=== PATIENT | male | born 1955 | race Caucasian/White ===

== ENCOUNTER → 2019-10-27 | Outpatient (CLI) | payer MEDICARE ==
--- NOTE | 2019-10-27 15:41 | XR ---
EXAMINATION TYPE: XR chest 2V DATE OF EXAM: 10/27/2019 COMPARISON: CT chest 04/13/2012 HISTORY: Palpitations, cough and chest pain TECHNIQUE: Frontal and lateral views of the chest are obtained. FINDINGS: There is no focal air space opacity, pleural effusion, or pneumothorax seen. The cardiac silhouette size is within normal limits. The osseous structures are remarkable for some thickening of the posterior right eighth rib, question prior rib fracture with healing, correlate for appropriat e history. There are prominent lung volumes with flattening the hemidiaphragms. Aorta is dense. Possi ble minimal scarring or subsegmental basilar atelectatic changes. IMPRESSION: No acute cardiopulmonary process. Correlate for possible prior rib fracture. There is so me underlying emphysema. Possible basilar scarring.
== END | disposition home or self-care (01) ==
LOC: RADXRMAIN 11:25
PROVIDERS: ATTEND Nurse Practitioner Family
DX: J43.9 Emphysema, unspecified (principal)
CPT/HCPCS: 71046

== ENCOUNTER → 2019-11-04 | Outpatient (CLI) | payer MEDICARE | END | disposition home or self-care (01) | LOC: LABWHC1 09:38 | PROVIDERS: ATTEND Urology | DX: N52.9 Male erectile dysfunction, unspecified (principal) | CPT/HCPCS: 36415; 84403 ==

== ENCOUNTER 2020-04-08 13:28 | Emergency (ER) | payer MEDICARE ==
[2020-04-08] MEDS ORDERED: ACETAMINOPHEN TAB 325 MG TAB PO STA (14:12)
[2020-04-08 15:08] LABS: Basophils % (A) 0 %; Eosinophils # (A) 0.1 k/uL (0-0.7); Eosinophils % (A) 1 %; HCT 39.1 % (39.0-53.0); HGB 13.1 gm/dL (13.0-17.5); Lymphocytes # (A) 0.2 k/uL (1.0-4.8); Lymphocytes % (A) 2 %; MCH 32.9 pg (25.0-35.0); MCHC 33.6 g/dL (31.0-37.0); MCV 97.9 fL (80.0-100.0); Mean Platelet Volume 8.3; Monocytes # (A) 0.4 k/uL (0-1.0); Monocytes % (A) 4 %; Neutrophils # (A) 9.2 k/uL (1.3-7.7); Neutrophils % (A) 92 %; Platelet Count 151 k/uL (150-450); RBC 3.99 m/uL (4.30-5.90); RDW 14.3 % (11.5-15.5)
[2020-04-08 15:10] LABS: Appearance,Urine Cloudy (Clear); Bacteria,Urine Rare /hpf; Bilirubin,Urine Negative (Negative); Blood,Urine Small (Negative); Color,Urine Light Yellow; Glucose,Urine (UA) 2+ (Negative); Ketones,Urine Negative (Negative); Leukocyte Esterase,Urine Small (Negative); Nitrite,Urine Negative (Negative); PH, Urine 8.5 (5.0-8.0); Protein,Urine 2+ (Negative); RBC,Urine 4 /hpf (0-5); Specific Gravity,Urine 1.007 (1.001-1.035); Squamous Epithelial Cell,Urine <1 /hpf (0-4); Urobilinogen,Urine <2.0 mg/dL (<2.0); WBC,Urine 7 /hpf (0-5)
[2020-04-08 15:25] LABS: Albumin 3.5 g/dL (3.5-5.0); Calcium 8.7 mg/dL (8.4-10.2); Potassium 4.6 mmol/L (3.5-5.1); Total Bilirubin 0.7 mg/dL (0.2-1.3); Total Protein 6.3 g/dL (6.3-8.2)
[2020-04-08] MEDS ORDERED: cefTRIAXone IN SWFI 1,000 MG/10 ML SYRINGE IVP STA (15:30)
--- NOTE | 2020-04-08 15:30 | CT ---
EXAMINATION TYPE: CT brain wo con DATE OF EXAM: 04/08/2020 COMPARISON: None HISTORY: Fever x2 days CT DLP: 1115.4 mGycm Automated exposure control for dose reduction was used. Ventricles and sulci appear normal. There is no mass effect nor midline shift. There is no sign of in tracranial hemorrhage. Calvarium is intact. There is mild mucosal thickening in the sphenoid sinus. M ucous retention cysts in the maxillary sinuses. There is some debris in the external auditory canals. IMPRESSION: Brain CT scan normal for age. Mild sinusitis.
--- NOTE | 2020-04-08 15:30 | ED ---
General Adult HPI - General Chief complaint: Fever Stated complaint: Fever Time Seen by Provider: 04/08/20 13:30 Source: patient Mode of arrival: ambulatory Limitations: no limitations - History of Present Illness Initial comments: Patient is a 64-year-old male with past history of end-stage renal disease on hemodialysis who presents emergency room with reported fevers. Patient states that he had a low-grade temperature yesterday at dialysis. He has not missed any sessions. He awoke this morning covered in sweat. He took his temp and it was 102. He went to urgent care. He is denying headaches or visual changes. No cough or hemoptysis. No chest pain. Denies abdominal pain. Patient makes little urine and has not noted any changes. No diarrhea or bloody stools. No rashes. AV fistula site is without bleeding, drainage or redness. I received a call from urgent care stating that they recommended transfer patient to the hospital - Related Data Home Medications Medication Instructions Recorded Confirmed Calcium Acetate [PhosLo] 2,668 mg PO AC-TID 04/09/20 04/09/20 Levothyroxine Sodium [Synthroid] 175 mcg PO DAILY 04/09/20 04/09/20 Lidocaine-Prilocaine Cream [Emla 1 applic TOPICAL DIRECTED 04/09/20 04/09/20 Cream 2.5%/2.5%] Midodrine [ProAmatine] 5 mg PO DAILY PRN 04/09/20 04/09/20 Pravastatin Sodium [Pravachol] 10 mg PO HS 04/09/20 04/09/20 Prorenal+D 1 tab PO DAILY 04/09/20 04/09/20 Previous Rx's Medication Instructions Recorded Apixaban [Eliquis] 2.5 mg PO BID #60 tab 04/11/20 Aspirin 81 mg PO DAILY chew 04/11/20 Ciprofloxacin HCl [Cipro] 500 mg PO Q24H #12 tab 04/11/20 Lisinopril [Zestril] 2.5 mg PO DAILY #30 tab 04/11/20 Metoprolol Tartrate [Lopressor] 25 mg PO DAILY #30 tab 04/11/20 Nicotine 21Mg/24Hr Patch [Habitrol] 1 patch TRANSDERM DAILY #30 patch 04/11/20 Spironolactone [Aldactone] 25 mg PO DAILY #30 tab 04/11/20 Allergies Allergy/AdvReac Type Severity Reaction Status Date / Time No Known Allergies Allergy Verified 04/09/20 09:58 Review of Systems ROS Statement: Those systems with pertinent positive or pertinent negative responses have been documented in the HPI. ROS Other: All systems not noted in ROS Statement are negative. Past Medical History Past Medical History: Renal Disease Additional Past Medical History / Comment(s): hemodialysis M,W,F, polycystic kidney disease History of Any Multi-Drug Resistant Organisms: None Reported Additional Past Surgical History / Comment(s): AV fistula, PD catheter and removal Past Psychological History: No Psychological Hx Reported Smoking Status: Current every day smoker Past Alcohol Use History: Occasional Past Drug Use History: None Reported General Exam Limitations: no limitations General appearance: alert, in no apparent distress Head exam: Present: atraumatic, normocephalic, normal inspection Eye exam: Present: normal appearance, PERRL, EOMI. Absent: scleral icterus, conjunctival injection, periorbital swelling ENT exam: Present: normal exam, mucous membranes moist Neck exam: Present: normal inspection. Absent: tenderness, meningismus, lymphadenopathy Respiratory exam: Present: normal lung sounds bilaterally. Absent: respiratory distress, wheezes, rales, rhonchi, stridor Cardiovascular Exam: Present: normal rhythm, tachycardia, normal heart sounds. Absent: systolic murmur, diastolic murmur, rubs, gallop, clicks GI/Abdominal exam: Present: soft, normal bowel sounds. Absent: distended, tenderness, guarding, rebound, rigid Extremities exam: Present: normal inspection, full ROM, normal capillary refill, other (fistula left upper extremity with thrill). Absent: tenderness, pedal edema, joint swelling, calf tenderness Back exam: Present: normal inspection Neurological exam: Present: alert, oriented X3, CN II-XII intact Psychiatric exam: Present: normal affect, normal mood Skin exam: Present: warm, dry, intact, normal color. Absent: rash Course Vital Signs 04/08/20 04/08/20 04/08/20 13:31 15:07 15:37 Temperature 101.6 F H Pulse Rate 114 H 98 Respiratory 18 16 18 Rate Blood Pressure 114/74 126/70 O2 Sat by Pulse 98 98 Oximetry 04/08/20 16:30 Temperature 99.0 F Pulse Rate Respiratory Rate Blood Pressure O2 Sat by Pulse Oximetry EKG Findings - EKG Comments: EKG Findings:: EKG demonstrates normal sinus rhythm with a ventricular rate of 98. IN 136. QRS 82. QTC 457. No acute ST segment elevations or depressions concern for ischemic changes. Biphasic T-wave V4 through V6 Medical Decision Making - Medical Decision Making Upon arrival the patient is placed in room 18. A thorough history and physical was performed. Laboratory studies were conducted. Patient was sent for chest x-ray as well as a CT of his brain. He was given a dose of Tylenol. Upon return of the results, they are discussed with the patient. Patient requests to go home. I discussed the severity of the patients condition with diagnosis with need for hospitalization, IV antibiotics and close observation. Patient understood but continued to request to go home. I discussed the risks of leaving to include rapid decline in patients condition, permanent disability and . Patient understood these risk, was of sound mind, is capable of making his own decisions and refuses admission. I notified him that he was leaving against [facility] advice and he agreed to sign AMA paperwork. I instructed him that he needs to return to the ED when he does agree to hospital admission and needs to follow up with his PCP as soon as possible. I did provide him a rx for an antibiotic however he is made aware that he requires IV antibiotics at this time and these oral antibiotics are unlikely to treat his condition at this critical time. - Lab Data Result diagrams: 04/08/20 14:46 04/08/20 14:46 Lab Results 04/08/20 04/08/20 04/08/20 Range/Units 14:45 14:46 14:46 WBC 10.0 (3.8-10.6) k/uL RBC 3.99 L (4.30-5.90) m/uL Hgb 13.1 (13.0-17.5) gm/dL Hct 39.1 (39.0-53.0) % MCV 97.9 (80.0-100.0) fL MCH 32.9 (25.0-35.0) pg MCHC 33.6 (31.0-37.0) g/dL RDW 14.3 (11.5-15.5) % Plt Count 151 (150-450) k/uL Neutrophils % 92 % Lymphocytes % 2 % Monocytes % 4 % Eosinophils % 1 % Basophils % 0 % Neutrophils # 9.2 H (1.3-7.7) k/uL Lymphocytes # 0.2 L (1.0-4.8) k/uL Monocytes # 0.4 (0-1.0) k/uL Eosinophils # 0.1 (0-0.7) k/uL Basophils # 0.0 (0-0.2) k/uL Sodium 130 L (137-145) mmol/L Potassium 4.6 (3.5-5.1) mmol/L Chloride 88 L (98-107) mmol/L Carbon Dioxide 28 (22-30) mmol/L Anion Gap 14 mmol/L BUN 42 H (9-20) mg/dL Creatinine 8.49 H* (0.66-1.25) mg/dL Est GFR (CKD-EPI)AfAm 7 (>60 ml/min/1.73 sqM) Est GFR (CKD-EPI)NonAf 6 (>60 ml/min/1.73 sqM) Glucose 117 H (74-99) mg/dL Plasma Lactic Acid Sandor (0.7-2.0) mmol/L Calcium 8.7 (8.4-10.2) mg/dL Total Bilirubin 0.7 (0.2-1.3) mg/dL AST 27 (17-59) U/L ALT 13 (4-49) U/L Alkaline Phosphatase 79 (38-126) U/L Troponin I (0.000-0.034) ng/mL C-Reactive Protein 316.8 H (<10.0) mg/L Total Protein 6.3 (6.3-8.2) g/dL Albumin 3.5 (3.5-5.0) g/dL Lipase 36 (23-300) U/L Urine Color Urine Appearance (Clear) Urine pH (5.0-8.0) Ur Specific [place] (1.001-1.035) Urine Protein (Negative) Urine Glucose (UA) (Negative) Urine Ketones (Negative) Urine Blood (Negative) Urine Nitrite (Negative) Urine Bilirubin (Negative) Urine Urobilinogen (<2.0) mg/dL Ur Leukocyte Esterase (Negative) Urine RBC (0-5) /hpf Urine WBC (0-5) /hpf Ur Squamous Epith Cells (0-4) /hpf Urine Bacteria (None) /hpf Coronavirus (PCR) Not Detected (Not Detected) 04/08/20 04/08/20 04/08/20 Range/Units 14:46 14:46 14:53 WBC (3.8-10.6) k/uL RBC (4.30-5.90) m/uL Hgb (13.0-17.5) gm/dL Hct (39.0-53.0) % MCV (80.0-100.0) fL MCH (25.0-35.0) pg MCHC (31.0-37.0) g/dL RDW (11.5-15.5) % Plt Count (150-450) k/uL Neutrophils % % Lymphocytes % % Monocytes % % Eosinophils % % Basophils % % Neutrophils # (1.3-7.7) k/uL Lymphocytes # (1.0-4.8) k/uL Monocytes # (0-1.0) k/uL Eosinophils # (0-0.7) k/uL Basophils # (0-0.2) k/uL Sodium (137-145) mmol/L Potassium (3.5-5.1) mmol/L Chloride (98-107) mmol/L Carbon Dioxide (22-30) mmol/L Anion Gap mmol/L BUN (9-20) mg/dL Creatinine (0.66-1.25) mg/dL Est GFR (CKD-EPI)AfAm (>60 ml/min/1.73 sqM) Est GFR (CKD-EPI)NonAf (>60 ml/min/1.73 sqM) Glucose (74-99) mg/dL Plasma Lactic Acid Sandor 1.3 (0.7-2.0) mmol/L Calcium (8.4-10.2) mg/dL Total Bilirubin (0.2-1.3) mg/dL AST (17-59) U/L ALT (4-49) U/L Alkaline Phosphatase (38-126) U/L Troponin I 0.073 H* (0.000-0.034) ng/mL C-Reactive Protein (<10.0) mg/L Total Protein (6.3-8.2) g/dL Albumin (3.5-5.0) g/dL Lipase (23-300) U/L Urine Color Light Yellow Urine Appearance Cloudy (Clear) Urine pH 8.5 H (5.0-8.0) Ur Specific [place] 1.007 (1.001-1.035) Urine Protein 2+ H (Negative) Urine Glucose (UA) 2+ H (Negative) Urine Ketones Negative (Negative) Urine Blood Small H (Negative) Urine Nitrite Negative (Negative) Urine Bilirubin Negative (Negative) Urine Urobilinogen <2.0 (<2.0) mg/dL Ur Leukocyte Esterase Small H (Negative) Urine RBC 4 (0-5) /hpf Urine WBC 7 H (0-5) /hpf Ur Squamous Epith Cells <1 (0-4) /hpf Urine Bacteria Rare H (None) /hpf Coronavirus (PCR) (Not Detected) Disposition Clinical Impression: Fever, ESRD (end stage renal disease) Disposition: Left Against Medical Advice Condition: Serious Is patient prescribed a controlled substance at d/c from ED?: No Referrals: Robert Christianson DO [Primary Care Provider] - 1-2 days Time of Disposition: 15:57
--- NOTE | 2020-04-08 15:34 | XR ---
EXAMINATION TYPE: XR chest 2V DATE OF EXAM: 04/08/2020 COMPARISON: 10/27/2019 HISTORY: Fever TECHNIQUE: FINDINGS: There is some blunting of the costophrenic angles. Heart and mediastinum are within normal limits. There is no heart failure. There is old healed right posterior lateral rib fracture. IMPRESSION: Mild basilar pleural reaction and fluid appears mostly new compared to old exam. No heart failure seen. No pulmonary consolidation.
[2020-04-08 16:05] LABS: C Reactive Protein 316.8 mg/L (<10.0)
[2020-04-08 16:28] VITALS: BP 126/70; PULSE 98; RESP 18
[2020-04-08 16:33] VITALS: TEMP 99
== END 2020-04-08 16:33 | disposition left against medical advice (07) ==
LOC: EC 13:28
DX: R50.9 Fever, unspecified (principal); N18.6 End stage renal disease; F17.200 Nicotine dependence, unspecified, uncomplicated; N28.1 Cyst of kidney, acquired; Z99.2 Dependence on renal dialysis; Z95.828 Presence of other vascular implants and grafts; Z20.828 Contact with and (suspected) exposure to other viral communicable diseases
CPT/HCPCS: 99284; 96374; 36415; 93005; 80053; 83605; 83690; 84484; 85025; 86140; 81001; 87040; 87077; 87186; 71046; 70450; U0003; J0696

== ENCOUNTER 2020-04-09 08:37 | Inpatient (IN) | payer MEDICARE ==
[2020-04-09] MEDS ORDERED: ETOMIDATE 2 MG/ML 10 ML VIAL IVP STA (09:01)
--- NOTE | 2020-04-09 09:05 | ED ---
General Adult HPI - General Source: patient, family, RN notes reviewed, old records reviewed Mode of arrival: wheelchair Limitations: no limitations <Diane Wilcox - Last Filed: 04/09/20 09:04> <Hammad Chauhan - Last Filed: 04/09/20 11:23> - General Chief complaint: Recheck/Abnormal Lab/Rx Stated complaint: blood infection Time Seen by Provider: 04/09/20 08:44 - History of Present Illness Initial comments: Patient's a 64-year-old male presents raise her arm today for concern for a positive blood culture that was from yesterday. Patient has a history of hemodialysis on Friday and yesterday went to an urgent care for concern for fever and feeling unwell. He had a fever 103. Patient came to the emergency department yesterday had full sepsis workup and then decided to leave AGAINST MEDICAL ADVICE. Patient states that he was called this morning with a positive blood culture. He reports he's had no further fevers today but hasn't last took Tylenol last night and reports he took an antibiotic that was prescribed yesterday. Patient reports that he has had 2 bowel movements this morning he denies any significant abdominal pain. He reports that he does feel somewhat anxious and had some heaviness on his chest when he was called this morning with a positive blood culture. Patient reports he feels anxious at this time. (Diane Wilcox) - Related Data Home Medications Medication Instructions Recorded Confirmed Calcium Acetate [Phoslo] 2,668 mg PO AC-TID 04/09/20 04/09/20 Levothyroxine Sodium [Synthroid] 175 mcg PO DAILY 04/09/20 04/09/20 Lidocaine-Prilocaine Cream [Emla 1 applic TOPICAL DIRECTED 04/09/20 04/09/20 Cream 2.5%/2.5%] Midodrine [ProAmatine] 5 mg PO DAILY PRN 04/09/20 04/09/20 Pravastatin Sodium [Pravachol] 10 mg PO HS 04/09/20 04/09/20 Prorenal+D 1 tab PO DAILY 04/09/20 04/09/20 Previous Rx's Medication Instructions Recorded Cephalexin [Keflex] 500 mg PO Q6HR #40 cap 04/08/20 Allergies Allergy/AdvReac Type Severity Reaction Status Date / Time No Known Allergies Allergy Verified 04/09/20 09:58 Review of Systems ROS Other: All systems not noted in ROS Statement are negative. <Diane Wilcox - Last Filed: 04/09/20 09:04> ROS Other: All systems not noted in ROS Statement are negative. <SruthisherleyHammad Germán - Last Filed: 04/09/20 11:23> ROS Statement: Those systems with pertinent positive or pertinent negative responses have been documented in the HPI. Past Medical History Past Medical History: Renal Disease Additional Past Medical History / Comment(s): hemodialysis M,W,F, polycystic kidney disease History of Any Multi-Drug Resistant Organisms: None Reported Additional Past Surgical History / Comment(s): AV fistula, PD catheter and removal Past Psychological History: No Psychological Hx Reported Smoking Status: Current every day smoker Past Alcohol Use History: Occasional Past Drug Use History: None Reported <AjanaidDiane - Last Filed: 04/09/20 09:04> General Exam Limitations: no limitations General appearance: alert, in no apparent distress Head exam: Present: atraumatic, normocephalic, normal inspection Eye exam: Present: normal appearance, PERRL, EOMI. Absent: scleral icterus, conjunctival injection, periorbital swelling ENT exam: Present: normal exam, mucous membranes moist Neck exam: Present: normal inspection. Absent: tenderness, meningismus, lymphadenopathy Respiratory exam: Present: normal lung sounds bilaterally. Absent: respiratory distress, wheezes, rales, rhonchi, stridor Cardiovascular Exam: Present: regular rate, normal rhythm, normal heart sounds. Absent: systolic murmur, diastolic murmur, rubs, gallop, clicks GI/Abdominal exam: Present: soft, normal bowel sounds. Absent: distended, tenderness, guarding, rebound, rigid <AjanaidDiane - Last Filed: 04/09/20 09:04> Course Vital Signs 04/09/20 04/09/20 04/09/20 08:39 09:06 09:10 Temperature 97.9 F Pulse Rate 92 90 87 Respiratory 20 18 18 Rate Blood Pressure 75/49 86/52 99/67 O2 Sat by Pulse 97 100 100 Oximetry 04/09/20 04/09/20 04/09/20 09:15 09:30 09:45 Temperature Pulse Rate 89 156 H 90 Respiratory 18 18 18 Rate Blood Pressure 94/64 86/70 97/67 O2 Sat by Pulse 100 100 100 Oximetry 04/09/20 04/09/20 04/09/20 10:05 10:15 10:30 Temperature Pulse Rate 93 92 80 Respiratory 18 18 18 Rate Blood Pressure 73/59 84/66 95/64 O2 Sat by Pulse 100 100 100 Oximetry 04/09/20 11:00 Temperature Pulse Rate 79 Respiratory 18 Rate Blood Pressure 92/67 O2 Sat by Pulse 100 Oximetry Medical Decision Making - Lab Data Result diagrams: 04/09/20 08:58 04/09/20 08:58 <Hammad Chauhan D - Last Filed: 04/09/20 11:23> - Medical Decision Making Patient is 64-year-old male. He presents today for abnormal result was blood cultured. Patient was evaluated yesterday emergency department. He had a fever at that time. Blood culture preliminary results came back showing positive gram-negative bacilli. Patient has end-stage renal disease gets dialysis regularly. Patient reports that yesterday he did have some chest pressure with some diaphoresis. Reports that he had multiple episodes of this since yesterday however he feels fine now. Patient she denies any pressure-like sensation at this time. He denies any history of atrial fibrillation. Patient states he's been feeling lightheaded since being seen here yesterday. Vital signs upon arrival today shows blood pressure of 75/49. His heart rate of 92 on rest vital signs within acceptable limits. Bedside patient was tachycardic with heart rates anywhere between 140 and 160. It did appear to be irregular. EKG was obtained showing atrial fibrillation rapid ventricular rate. There was ST elevation seen in the precordial leads. Given clinical presentation there is concern of unstable atrial fibrillation. Informed consent was performed. Patient was given 10 mg of etomidate and underwent synchronous cardioversion. Patient is in normal sinus rhythm. Repeat EKG was performed showing ST depressions and T-wave inversions in precordial leads. Discussed patient case with cardiology sales commissions analyst doctor tomorrow at approximately 9:30 AM. EKGs and patient's clinical presentation were explained. There was concern that patient would benefit from cardiac catheterization. Cardiology recommends that patient does not need cardiac catheterization at this time given that patient likely has abnormal EKGs from sepsis. He requests that Tunneling Machine Operator not be activated at this time. He does recommend that patient be treated for sepsis and to get serial troponins. Patient reports significant improvement after cardioversion.Patient reevaluated at bedside denies any chest pressure at this time. Laboratory evaluation obtained. No leukocytosis there is however 8.8 neutrophils. Coag panel unremarkable. . Lactic acidosis of 3.2. Troponin of 0.247.CBC is unremarkable. Metabolic panel shows sodium of 1:30. There is positive anion gap acidosis. Elevated renal markers consistent with ESRD. Lactic acidosis 3.2. C-reactive protein of 532. Elevated renal tray peptide. Clinical presentation concerning for sepsis bacteremia. Patient be admitted to the ICU. Case was discussed with Dr. cisneros who is willing to accept patients care to the ICU. Consultation made to cardiology, infectious disease and nephrology. Patient reevaluated bedside and found to be in stable medical condition. EKG interpretation: Ventricular rate 155, A. fib, QRS 70, QTC 478. Diffuse ST elevations in the precordial leads. Sunken eyes cardioversion performed. Post- cardioversion EKG shows ventricular rate 91, sinus rhythm. NM interval 162, QRS 74, QTc 509. There are T-wave inversions in the precordial leads with ST depressions. (Hammad Chauhan) - Lab Data Lab Results 04/09/20 04/09/20 04/09/20 Range/Units 08:58 08:58 08:58 WBC 10.2 (3.8-10.6) k/uL RBC 4.30 (4.30-5.90) m/uL Hgb 14.0 (13.0-17.5) gm/dL Hct 41.8 (39.0-53.0) % MCV 97.4 (80.0-100.0) fL MCH 32.5 (25.0-35.0) pg MCHC 33.4 (31.0-37.0) g/dL RDW 14.1 (11.5-15.5) % Plt Count 159 (150-450) k/uL Neutrophils % 86 % Lymphocytes % 3 % Monocytes % 7 % Eosinophils % 1 % Basophils % 0 % Neutrophils # 8.8 H (1.3-7.7) k/uL Lymphocytes # 0.3 L (1.0-4.8) k/uL Monocytes # 0.7 (0-1.0) k/uL Eosinophils # 0.1 (0-0.7) k/uL Basophils # 0.0 (0-0.2) k/uL PT 10.1 (9.0-12.0) sec INR 1.0 (<1.2) APTT 25.2 (22.0-30.0) sec VBG pH (7.31-7.41) VBG pCO2 (37-51) mmHg VBG HCO3 (24-28) mmol/L Sodium 130 L (137-145) mmol/L Potassium 4.6 (3.5-5.1) mmol/L Chloride 89 L (98-107) mmol/L Carbon Dioxide 19 L (22-30) mmol/L Anion Gap 22 mmol/L BUN 57 H (9-20) mg/dL Creatinine 10.09 H* (0.66-1.25) mg/dL Est GFR (CKD-EPI)AfAm 6 (>60 ml/min/1.73 sqM) Est GFR (CKD-EPI)NonAf 5 (>60 ml/min/1.73 sqM) Glucose 116 H (74-99) mg/dL Plasma Lactic Acid Sandor (0.7-2.0) mmol/L Calcium 8.9 (8.4-10.2) mg/dL Magnesium 2.0 (1.6-2.3) mg/dL Total Bilirubin 0.8 (0.2-1.3) mg/dL AST 41 (17-59) U/L ALT 17 (4-49) U/L Alkaline Phosphatase 80 (38-126) U/L Troponin I (0.000-0.034) ng/mL C-Reactive Protein 532.6 H (<10.0) mg/L NT-Pro-B Natriuret Pep pg/mL Total Protein 6.5 (6.3-8.2) g/dL Albumin 3.5 (3.5-5.0) g/dL Blood Type Blood Type Confirm Blood Type Recheck Bld Type Recheck Status Antibody Screen Spec Expiration Date 04/09/20 04/09/20 04/09/20 Range/Units 08:58 08:58 08:58 WBC (3.8-10.6) k/uL RBC (4.30-5.90) m/uL Hgb (13.0-17.5) gm/dL Hct (39.0-53.0) % MCV (80.0-100.0) fL MCH (25.0-35.0) pg MCHC (31.0-37.0) g/dL RDW (11.5-15.5) % Plt Count (150-450) k/uL Neutrophils % % Lymphocytes % % Monocytes % % Eosinophils % % Basophils % % Neutrophils # (1.3-7.7) k/uL Lymphocytes # (1.0-4.8) k/uL Monocytes # (0-1.0) k/uL Eosinophils # (0-0.7) k/uL Basophils # (0-0.2) k/uL PT (9.0-12.0) sec INR (<1.2) APTT (22.0-30.0) sec VBG pH (7.31-7.41) VBG pCO2 (37-51) mmHg VBG HCO3 (24-28) mmol/L Sodium (137-145) mmol/L Potassium (3.5-5.1) mmol/L Chloride (98-107) mmol/L Carbon Dioxide (22-30) mmol/L Anion Gap mmol/L BUN (9-20) mg/dL Creatinine (0.66-1.25) mg/dL Est GFR (CKD-EPI)AfAm (>60 ml/min/1.73 sqM) Est GFR (CKD-EPI)NonAf (>60 ml/min/1.73 sqM) Glucose (74-99) mg/dL Plasma Lactic Acid Sandor 3.2 H* (0.7-2.0) mmol/L Calcium (8.4-10.2) mg/dL Magnesium (1.6-2.3) mg/dL Total Bilirubin (0.2-1.3) mg/dL AST (17-59) U/L ALT (4-49) U/L Alkaline Phosphatase (38-126) U/L Troponin I 0.247 H* (0.000-0.034) ng/mL C-Reactive Protein (<10.0) mg/L NT-Pro-B Natriuret Pep 66766 pg/mL Total Protein (6.3-8.2) g/dL Albumin (3.5-5.0) g/dL Blood Type Blood Type Confirm Blood Type Recheck Bld Type Recheck Status Antibody Screen Spec Expiration Date 04/09/20 04/09/20 04/09/20 Range/Units 09:58 10:03 10:03 WBC (3.8-10.6) k/uL RBC (4.30-5.90) m/uL Hgb (13.0-17.5) gm/dL Hct (39.0-53.0) % MCV (80.0-100.0) fL MCH (25.0-35.0) pg MCHC (31.0-37.0) g/dL RDW (11.5-15.5) % Plt Count (150-450) k/uL Neutrophils % % Lymphocytes % % Monocytes % % Eosinophils % % Basophils % % Neutrophils # (1.3-7.7) k/uL Lymphocytes # (1.0-4.8) k/uL Monocytes # (0-1.0) k/uL Eosinophils # (0-0.7) k/uL Basophils # (0-0.2) k/uL PT (9.0-12.0) sec INR (<1.2) APTT (22.0-30.0) sec VBG pH 7.42 H (7.31-7.41) VBG pCO2 39 (37-51) mmHg VBG HCO3 25 (24-28) mmol/L Sodium (137-145) mmol/L Potassium (3.5-5.1) mmol/L Chloride (98-107) mmol/L Carbon Dioxide (22-30) mmol/L Anion Gap mmol/L BUN (9-20) mg/dL Creatinine (0.66-1.25) mg/dL Est GFR (CKD-EPI)AfAm (>60 ml/min/1.73 sqM) Est GFR (CKD-EPI)NonAf (>60 ml/min/1.73 sqM) Glucose (74-99) mg/dL Plasma Lactic Acid Sandor (0.7-2.0) mmol/L Calcium (8.4-10.2) mg/dL Magnesium (1.6-2.3) mg/dL Total Bilirubin (0.2-1.3) mg/dL AST (17-59) U/L ALT (4-49) U/L Alkaline Phosphatase (38-126) U/L Troponin I (0.000-0.034) ng/mL C-Reactive Protein (<10.0) mg/L NT-Pro-B Natriuret Pep pg/mL Total Protein (6.3-8.2) g/dL Albumin (3.5-5.0) g/dL Blood Type O Positive Blood Type Confirm O Positive Blood Type Recheck No Previous Record Bld Type Recheck Status CABO Indicated Antibody Screen NEGATIVE Spec Expiration Date 04/12/2020 - 2302 Disposition <Diane Wilcox - Last Filed: 04/09/20 09:04> Time of Disposition: 11:23 Decision Time: 11:23 <Hammad Chauhan - Last Filed: 04/09/20 11:23> Clinical Impression: Bacteremia Disposition: ADMITTED IP TO THIS [facility] Condition: Critical Referrals: Robert Christianson DO [Primary Care Provider] - 1-2 days
[2020-04-09] MEDS ORDERED: CEFEPIME 2 GM in SODIUM CHLORIDE 0.9% 100 ML IVPB STA (09:18)
[2020-04-09] MEDS ORDERED: SODIUM CHLORIDE 0.9% 1,000 ML IV STA (09:20)
[2020-04-09] MEDS ORDERED: HEPARIN SODIUM,PORCINE 5,000 UNIT/ML 1 ML VIAL IV ONE (09:26)
[2020-04-09] MEDS ORDERED: ASPIRIN 81 MG PO STA (09:26)
[2020-04-09 09:32] LABS: Basophils % (A) 0 %; Eosinophils # (A) 0.1 k/uL (0-0.7); Eosinophils % (A) 1 %; HCT 41.8 % (39.0-53.0); Lymphocytes # (A) 0.3 k/uL (1.0-4.8); Lymphocytes % (A) 3 %; MCH 32.5 pg (25.0-35.0); MCHC 33.4 g/dL (31.0-37.0); MCV 97.4 fL (80.0-100.0); Mean Platelet Volume 8.6; Monocytes # (A) 0.7 k/uL (0-1.0); Monocytes % (A) 7 %; Neutrophils # (A) 8.8 k/uL (1.3-7.7); Neutrophils % (A) 86 %; Platelet Count 159 k/uL (150-450); RDW 14.1 % (11.5-15.5); WBC 10.2 k/uL (3.8-10.6)
[2020-04-09 10:07] LABS: Partial Thromboplastin Time 25.2 sec (22.0-30.0); Prothrombin Time 10.1 sec (9.0-12.0)
[2020-04-09] MEDS: HEPARIN SOD,PORK IN 0.45% NACL 25,000 UNIT in 0.45% NACL 1 250ML.BAG IV SCH (10:08)
[2020-04-09] MEDS: DEXTROSE 5% IN WATER 100 ML with AMIODARONE 150 MG IV ONE ×3 (10:12→11:48)
--- NOTE | 2020-04-09 10:15 | XR ---
EXAMINATION TYPE: XR chest 1V portable DATE OF EXAM: 04/09/2020 HISTORY: afib. REFERENCE: Previous study dated 04/08/2020. FINDINGS: Heart size upper clear. Pleural space are clear. IMPRESSION: BORDERLINE CARDIOMEGALY.
[2020-04-09 10:17] LABS: VBG PH 7.42 (7.31-7.41)
[2020-04-09 10:21] LABS: Albumin 3.5 g/dL (3.5-5.0); Calcium 8.9 mg/dL (8.4-10.2); Potassium 4.6 mmol/L (3.5-5.1); Total Bilirubin 0.8 mg/dL (0.2-1.3); Total Protein 6.5 g/dL (6.3-8.2)
[2020-04-09] MEDS ORDERED: ACETAMINOPHEN TAB 325 MG TAB PO PRN (10:32)
[2020-04-09] MEDS ORDERED: NALOXONE 0.4 MG/ML 1 ML VIAL IV PRN (10:32)
--- NOTE | 2020-04-09 11:03 | P.HPIM ---
History of Present Illness This is a pleasant 64 years old male with past medical history of hemodialysis on Friday, was on Friday with history of polycystic kidney disease. Cigarette smoker. Presents with fever, became yesterday with fever and then he signed himself out leaving AMA. He returns today for the same, he did recall that he has positive blood culture that's when he came back. He denies any new symptoms other than feeling generally weak, no coughing or chest pain or dyspnea. No abdominal pain. He had regular bowel yesterday however is still was a little loose this morning. He makes little urine but was pertinent for the last 2 weeks. In the emergency room he had EKG showing atrial fibrillation with RVR, he was hypotensive and and for this reason he was getting synchronous cardioversion and converted to sinus rhythm repeat EKG was still some ST depression in precordial plates, EGD team and discussed the case with horticultural farm manager loss prevention supervisor who recommended to admit the patient, treat sepsis and get serial troponin He smokes about 15 cigarettes per day, no alcohol or illicit drugs. No fever recorded today. However yesterday he has recorded fever of 101.6 However his blood pressure is 95/64, yesterday his blood pressure was 114/74 on 126/70 labs from yesterday shows sodium 1:30, creatinine 8.4, potassium 4.6, glucose 117, lactic acid check today was elevated 3.2, troponin is elevated 0.24 elevated but less severe. high ProBNP [id number]. Chest x-ray impression by radiologist showing borderline cardiomegaly Blood culture drawn yesterday showing gram-negative bacilli In the emergency room he started on amiodarone drip, he got 1 L of normal saline and started on heparin drip and cefepime. Straight Ruling Machine Operator, inspecting and testing lead hand and intensivists were consulted from the emergency room Review of Systems CONSTITUTIONAL: No fever, no malaise, no fatigue. HEENT: No recent visual problems or hearing problems. Denied any sore throat. CARDIOVASCULAR: No orthopnea, PND, no palpitations, no syncope. PULMONARY: No shortness of breath, no cough, no hemoptysis. GASTROINTESTINAL: No diarrhea, no nausea, no vomiting, no abdominal pain. Normoactive bowel sounds. NEUROLOGICAL: No headaches, no weakness, no numbness. HEMATOLOGICAL: Denies any bleeding or petechiae. GENITOURINARY: Denies any burning micturition, frequency, or urgency. MUSCULOSKELETAL/RHEUMATOLOGICAL: Denies any joint pain, swelling, or any muscle pain. ENDOCRINE: Denies any polyuria or polydipsia. Past Medical History Past Medical History: Renal Disease Additional Past Medical History / Comment(s): hemodialysis M,W,F, polycystic kidney disease History of Any Multi-Drug Resistant Organisms: None Reported Additional Past Surgical History / Comment(s): AV fistula, PD catheter and removal Past Psychological History: No Psychological Hx Reported Smoking Status: Current every day smoker Past Alcohol Use History: Occasional Past Drug Use History: None Reported Medications and Allergies Home Medications Medication Instructions Recorded Confirmed Type Cephalexin [Keflex] 500 mg PO Q6HR #40 cap 04/08/20 04/09/20 Rx Calcium Acetate [Phoslo] 2,668 mg PO AC-TID 04/09/20 04/09/20 History Levothyroxine Sodium [Synthroid] 175 mcg PO DAILY 04/09/20 04/09/20 History Lidocaine-Prilocaine Cream [Emla 1 applic TOPICAL DIRECTED 04/09/20 04/09/20 History Cream 2.5%/2.5%] Midodrine [ProAmatine] 5 mg PO DAILY PRN 04/09/20 04/09/20 History Pravastatin Sodium [Pravachol] 10 mg PO HS 04/09/20 04/09/20 History Prorenal+D 1 tab PO DAILY 04/09/20 04/09/20 History Allergies Allergy/AdvReac Type Severity Reaction Status Date / Time No Known Allergies Allergy Verified 04/09/20 09:58 Physical Exam Vitals: Vital Signs Temp Pulse Resp BP Pulse Ox 04/09/20 10:30 80 18 95/64 100 04/09/20 10:15 92 18 84/66 100 04/09/20 10:05 93 18 73/59 100 04/09/20 09:45 90 18 97/67 100 04/09/20 09:30 156 H 18 86/70 100 04/09/20 09:15 89 18 94/64 100 04/09/20 09:10 87 18 99/67 100 04/09/20 09:06 90 18 86/52 100 04/09/20 08:39 97.9 F 92 20 75/49 97 Intake and Output 04/08/20 04/09/20 04/09/20 22:59 06:59 14:59 Other: Weight 79.379 kg GENERAL: The patient is alert and oriented x3, not in any acute distress. Well developed, well nourished. HEENT: Pupils are round and equally reacting to light. EOMI. No scleral icterus. No conjunctival pallor. Normocephalic, atraumatic. No pharyngeal erythema. No thyromegaly. CARDIOVASCULAR: S1 and S2 present. No murmurs, rubs, or gallops. PULMONARY: Chest is clear to auscultation, no wheezing or crackles. ABDOMEN: Soft, nontender, nondistended, normoactive bowel sounds. No palpable organomegaly. MUSCULOSKELETAL: No joint swelling or deformity. -EXTREMITIES: No cyanosis, clubbing, or pedal edema. Left arm fistula, with a bruit NEUROLOGICAL: Gross neurological examination did not reveal any focal deficits. SKIN: No rashes. No petechiae Results CBC & Chem 7: 04/09/20 08:58 Labs: Abnormal Lab Results - Last 24 Hours (Table) 04/09/20 04/09/20 04/09/20 Range/Units 08:58 08:58 08:58 Neutrophils # 8.8 H (1.3-7.7) k/uL Lymphocytes # 0.3 L (1.0-4.8) k/uL Plasma Lactic Acid Sandor 3.2 H* (0.7-2.0) mmol/L Troponin I 0.247 H* (0.000-0.034) ng/mL Assessment and Plan Assessment: Sepsis, with fever, no other SIRS is criteria Hypotension Lactic acid elevated New-onset atrial fibrillation, status post cardioversion in the emergency room Elevated troponin, could be from his renal disease, atrial fibrillation. rule out ischemic cardiac causes End-stage renal disease on hemodialysis Nicotine dependence Plan: This is a pleasant 64 years old male who presents with septicemia with gram- negative bacilli and new onset A. fib and high troponin. Start the patient on Zosyn, follow-up culture results. Send UA and urine culture. Given the patient bolus and monitor blood pressure lactic acid. Consult cardiology while monitoring for heart regular with telemetry. Serial troponins Labs and medication were reviewed.. Continue same treatment. Continue with symptomatic treatment. Resume home medication. Monitor lytes and vitals. DVT and GI prophylaxis. Further recommendations of the clinical course of the patient DVT prophylaxis: heparin GI Prophylaxis: Pepcid PT/OT: Pending Prognosis is guarded
[2020-04-09 11:13] LABS: C Reactive Protein 532.6 mg/L (<10.0)
[2020-04-09] MEDS ORDERED: SODIUM CHLORIDE 0.9% 1,000 ML IV ONE (11:47)
[2020-04-09] MEDS ORDERED: LIDOCAINE-PRILOCAINE 2.5-2.5% CREAM 5 GM TUBE TOPICAL STA (12:30)
--- NOTE | 2020-04-09 12:40 | P.CNPUL ---
History of Present Illness Consult date: 04/09/20 Chief complaint: Generalized weakness, sepsis History of present illness: 64-year-old male patient with a incisional disease is currently on hemodialysis the patient undergoes dialysis 3 times a week MWF through a AV fistula. The patient presented to the ED with fever and lethargic and generalized weakness and constipation symptoms. In fact came into the emergency yesterday he signed himself AMA. He returned for the same symptoms and he was found to have a possible culture with gram-negative bacillus. No nausea. No vomiting. No abdominal pain. His been having regular bowel movements. No chest pain. No cough or sputum production. He is urine output is minimal at this point in time. In the ED, the patient was also found to have a new onset atrial fibrillation with rapid ventricular response. He was borderline hypotensive. He was not requiring any pressors. EKG showed a atrial fibrillation rhythm and based on some underlying hypotension, the patient underwent a cardioversion emergency department and subsequently he woke converted into normal sinus rhythm. The current EKG showing sinus with some ST segment changes for which cardiology was asked to see the patient and no intervention was recommended. The patient is currently in the intensive care unit. His serum creatinine is at 8.4 with a BUN of 130. Glucose is 117. Lactic acid level was elevated at 3.2. Troponins are 0.24 and a proBNP level is 57,002 100. Chest x-ray showed cardiomegaly. The patient was given a liter of normal saline, started on IV he carlos, started on amiodarone drip and moved to the intensive care unit. He is currently on 2 L of oxygen by nasal cannula with a pulse ox of 100%. He is current antibiotic coverage is IV Zosyn. Review of Systems CONSTITUTIONAL: No fever, no malaise, endorses generalized weakness and fatigue and constitutional symptoms. HEENT: No recent visual problems or hearing problems. Denied any sore throat. CARDIOVASCULAR: No orthopnea, PND, no palpitations, no syncope. PULMONARY: No shortness of breath, no cough, no hemoptysis. GASTROINTESTINAL: No diarrhea, no nausea, no vomiting, no abdominal pain. Normoactive bowel sounds. NEUROLOGICAL: No headaches, no weakness, no numbness. HEMATOLOGICAL: Denies any bleeding or petechiae. GENITOURINARY: Denies any burning micturition, frequency, or urgency. Urine output is minimal at this point in time and he has had previous infections. He has polycystic kidney disease. MUSCULOSKELETAL/RHEUMATOLOGICAL: Denies any joint pain, swelling, or any muscle pain. ENDOCRINE: Denies any polyuria or polydipsia. Past Medical History Past Medical History: Renal Disease Additional Past Medical History / Comment(s): hemodialysis M,W,F, polycystic kidney disease History of Any Multi-Drug Resistant Organisms: None Reported Additional Past Surgical History / Comment(s): AV fistula, PD catheter and removal Past Psychological History: No Psychological Hx Reported Smoking Status: Current every day smoker Past Alcohol Use History: Occasional Past Drug Use History: None Reported Medications and Allergies Home Medications Medication Instructions Recorded Confirmed Type Cephalexin [Keflex] 500 mg PO Q6HR #40 cap 04/08/20 04/09/20 Rx Calcium Acetate [Phoslo] 2,668 mg PO AC-TID 04/09/20 04/09/20 History Levothyroxine Sodium [Synthroid] 175 mcg PO DAILY 04/09/20 04/09/20 History Lidocaine-Prilocaine Cream [Emla 1 applic TOPICAL DIRECTED 04/09/20 04/09/20 History Cream 2.5%/2.5%] Midodrine [ProAmatine] 5 mg PO DAILY PRN 04/09/20 04/09/20 History Pravastatin Sodium [Pravachol] 10 mg PO HS 04/09/20 04/09/20 History Prorenal+D 1 tab PO DAILY 04/09/20 04/09/20 History Allergies Allergy/AdvReac Type Severity Reaction Status Date / Time No Known Allergies Allergy Verified 04/09/20 09:58 Physical Exam Vitals: Vital Signs Temp Pulse Resp BP Pulse Ox 04/09/20 11:53 97.9 F 84 18 100/66 100 04/09/20 11:00 79 18 92/67 100 04/09/20 10:30 80 18 95/64 100 04/09/20 10:15 92 18 84/66 100 04/09/20 10:05 93 18 73/59 100 04/09/20 09:45 90 18 97/67 100 04/09/20 09:30 156 H 18 86/70 100 04/09/20 09:15 89 18 94/64 100 04/09/20 09:10 87 18 99/67 100 06/28/20 09:06 90 18 86/52 100 04/09/20 08:39 97.9 F 92 20 75/49 97 Intake and Output 04/08/20 04/09/20 04/09/20 22:59 06:59 14:59 Other: Weight 79.379 kg Gen. appearance, comfortable alert and oriented nonacute distress Head exam was generally normal. There was no scleral icterus or corneal arcus. Mucous membranes were moist. Neck was supple and without jugular venous distension, thyromegaly, or carotid bruits. Carotids were easily palpable bilaterally. There was no adenopathy. Lungs were clear to auscultation and percussion, and with normal diaphragmatic excursion. No wheezes or rales were noted. Heart sounds irregular S1-S2 consistent with atrial fibrillation with rapid ventricular response. No cervical murmurs appreciated. Abdominal exam revealed normal bowel sounds. The abdomen was soft, non-tender, and without masses, organomegaly, or appreciable enlargement of the abdominal aorta. The patient has anterior abdominal wall hernias which is easily reducible and there is no evidence of any incarceration or strangulation. Examination of the extremities revealed easily palpable radial, femoral and pedal pulses. There was no cyanosis, clubbing or edema. The patient is a left arm AV fistula with a positive bruit and a thrill Examination of the skin revealed no evidence of significant rashes, suspicious appearing nevi or other concerning lesions. Neurologically awake and alert and is no focal neurological deficits. Results - Laboratory Findings CBC and BMP: 04/09/20 08:58 04/09/20 08:58 PT/INR, D-dimer PT 10.1 sec (9.0-12.0) 04/09/20 08:58 INR 1.0 (<1.2) 04/09/20 08:58 Abnormal lab findings: Abnormal Labs 04/09/20 04/09/20 04/09/20 08:58 08:58 08:58 Neutrophils # 8.8 H Lymphocytes # 0.3 L VBG pH Sodium 130 L Chloride 89 L Carbon Dioxide 19 L BUN 57 H Creatinine 10.09 H* Glucose 116 H Plasma Lactic Acid Sandor 3.2 H* Troponin I C-Reactive Protein 532.6 H 04/09/20 04/09/20 08:58 10:03 Neutrophils # Lymphocytes # VBG pH 7.42 H Sodium Chloride Carbon Dioxide BUN Creatinine Glucose Plasma Lactic Acid Sandor Troponin I 0.247 H* C-Reactive Protein - Diagnostic Findings Chest x-ray: image reviewed Assessment and Plan Plan: 1 gram-negative sepsis, likely of a genitourinary source versus skin.. No evidence of a pneumonia. No evidence of any gastrointestinal symptoms. The patient is currently on IV Zosyn. No significant leukocytosis and fever and there is some borderline hypotension. The patient received IV fluids. The patient has some mild lactic acidosis 2 lactic acidosis, while secondary to above 3 new-onset atrial fibrillation with rapid ventricular, post cardioversion, currently in sinus on IV heparin 4 troponin leak, versus an acute non-STEMI 5 End stage renal disease on hemodialysis 3 times a week via an AV fistula in the left upper extremity 6 polycystic kidney disease 7 smoker 8 abdominal wall hernia, no evidence of any strangulation or incarceration Plan Urine culture Continue gentle hydration considering his underlying ESRD state IV fluids and 75 mL's an hour IV Zosyn Pressors if needed and levo fed will be pressor of choice IV heparin regarding the onset A. fib Echocardiogram Check thyroid function tests Nephrology consultation for ESRD Cardiology consultation regarding new onset atrial fibrillation Keep the patient ICU We'll continue to follow
[2020-04-09] MEDS ORDERED: CALCIUM ACETATE 667 MG TAB PO SCH (13:27)
[2020-04-09] MEDS: PIPERACILLIN-TAZOBACTAM 3.375 GM in SODIUM CHLORIDE 0.9% 100 ML IVPB SCH ×2 (13:46→21:58)
--- NOTE | 2020-04-09 13:48 | ECHOF ---
Referral Reason:ACS MEASUREMENTS -------- HEIGHT: 180.3 cm WEIGHT: 80.3 kg BP: 97/71 RVIDd: 4.2 cm (< 3.3) IVSd: 1.6 cm (0.6 - 1.1) LVIDd: 4.7 cm (3.9 - 5.3) LVPWd: 1.5 cm (0.6 - 1.1) IVSs: 2.0 cm LVIDs: 3.4 cm LVPWs: 1.8 cm LA Diam: 4.4 cm (2.7 - 3.8) LAESV Index (A-L): 35.39 ml/m Ao Diam: 3.2 cm (2.0 - 3.7) AV Cusp: 2.0 cm (1.5 - 2.6) MV EXCURSION: 16.312 mm (> 18.000) MV EF SLOPE: 40 mm/s (70 - 150) EPSS: 0.8 cm MV E Chaim: 0.63 m/s MV DecT: 266 ms MV A Chaim: 1.20 m/s MV E/A Ratio: 0.52 AV maxP.65 mmHg AV meanP.62 mmHg RAP: 5.00 mmHg RVSP: 22.52 mmHg FINDINGS -------- This was a technically good study. The left ventricular size is normal. There is moderate concentric left ventricular hypertrophy. O verall left ventricular systolic function is moderate-severely impaired with, an EF between 30 - 35 % . The right ventricle is moderately enlarged. LA is moderately dilated 34-39 ml/m2 The right atrium is normal in size. Interatrial and interventricular septum intact. There is mild aortic valve sclerosis. There is mild aortic stenosis present. Peak/mean gradient a cross the Aortic Valve is 19.65mmHg / 8.62mmHg. The mitral valve leaflets are mildly thickened. Mild mitral regurgitation is present. Mild tricuspid regurgitation present. Right ventricular systolic pressure is normal at < 35 mmHg. Trace/mild (physiologic) pulmonic regurgitation. The aortic root size is normal. Normal inferior vena cava with normal inspiratory collapse consistent with estimated right atrial pre ssure of 5 mmHg. There is no pericardial effusion. CONCLUSIONS -------- 1. This was a technically good study. 2. The left ventricular size is normal. 3. There is moderate concentric left ventricular hypertrophy. 4. Overall left ventricular systolic function is moderate-severely impaired with, an EF between 30 - 35 %. 5. The right ventricle is moderately enlarged. 6. LA is moderately dilated 34-39 ml/m2 7. The right atrium is normal in size. 8. Interatrial and interventricular septum intact. 9. There is mild aortic valve sclerosis. 10. There is mild aortic stenosis present. 11. Peak/mean gradient across the Aortic Valve is 19.65mmHg / 8.62mmHg. 12. The mitral valve leaflets are mildly thickened. 13. Mild mitral regurgitation is present. 14. Mild tricuspid regurgitation present. 15. Right ventricular systolic pressure is normal at < 35 mmHg. 16. Trace/mild (physiologic) pulmonic regurgitation. 17. The aortic root size is normal. 18. Normal inferior vena cava with normal inspiratory collapse consistent with estimated right atrial pressure of 5 mmHg. 19. There is no pericardial effusion. PHARMACY LABORATORY TECHNICIAN: Emma Morales RDCS
[2020-04-09] MEDS: SODIUM CHLORIDE 0.9% 1,000 ML IV SCH (13:50)
--- NOTE | 2020-04-09 14:08 | ED ---
General Adult HPI - General Chief complaint: Recheck/Abnormal Lab/Rx Stated complaint: blood infection Time Seen by Provider: 04/09/20 08:44 Source: patient, family, RN notes reviewed, old records reviewed Mode of arrival: wheelchair Limitations: no limitations - Related Data Home Medications Medication Instructions Recorded Confirmed Calcium Acetate [Phoslo] 2,668 mg PO AC-TID 04/09/20 04/09/20 Levothyroxine Sodium [Synthroid] 175 mcg PO DAILY 04/09/20 04/09/20 Lidocaine-Prilocaine Cream [Emla 1 applic TOPICAL DIRECTED 04/09/20 04/09/20 Cream 2.5%/2.5%] Midodrine [ProAmatine] 5 mg PO DAILY PRN 04/09/20 04/09/20 Pravastatin Sodium [Pravachol] 10 mg PO HS 04/09/20 04/09/20 Prorenal+D 1 tab PO DAILY 04/09/20 04/09/20 Previous Rx's Medication Instructions Recorded Cephalexin [Keflex] 500 mg PO Q6HR #40 cap 04/08/20 Allergies Allergy/AdvReac Type Severity Reaction Status Date / Time No Known Allergies Allergy Verified 04/09/20 09:58 Review of Systems ROS Statement: Those systems with pertinent positive or pertinent negative responses have been documented in the HPI. ROS Other: All systems not noted in ROS Statement are negative. Past Medical History Past Medical History: Renal Disease Additional Past Medical History / Comment(s): hemodialysis M,W,F, polycystic kidney disease History of Any Multi-Drug Resistant Organisms: None Reported Additional Past Surgical History / Comment(s): AV fistula, PD catheter and removal Past Psychological History: No Psychological Hx Reported Smoking Status: Current every day smoker Past Alcohol Use History: Occasional Past Drug Use History: None Reported General Exam Limitations: no limitations General appearance: alert, in no apparent distress Course Vital Signs 04/09/20 04/09/20 04/09/20 08:39 09:06 09:10 Temperature 97.9 F Pulse Rate 92 90 87 Respiratory 20 18 18 Rate Blood Pressure 75/49 86/52 99/67 O2 Sat by Pulse 97 100 100 Oximetry 04/09/20 04/09/20 04/09/20 09:15 09:30 09:45 Temperature Pulse Rate 89 156 H 90 Respiratory 18 18 18 Rate Blood Pressure 94/64 86/70 97/67 O2 Sat by Pulse 100 100 100 Oximetry 04/09/20 04/09/20 04/09/20 10:00 10:15 10:30 Temperature Pulse Rate 93 92 80 Respiratory 18 18 18 Rate Blood Pressure 73/59 84/66 95/64 O2 Sat by Pulse 100 100 100 Oximetry 04/09/20 04/09/20 11:00 11:30 Temperature Pulse Rate 79 81 Respiratory 18 18 Rate Blood Pressure 92/67 89/69 O2 Sat by Pulse 100 100 Oximetry Procedures - [place] Protocol (Time Out) Procedure Performed:: cardioversion with moderate sedation Performing Provider: Hammda Chauhan Nurse: Shanita Bethea Patient Identification (2 identifiers required): Chart, Verbal, Arm Band, Name, Birthdate, Medical Record Number Patient/Legal [employer] has Confirmed: Identity, Site, Procedure, Consent Site Marked: No Site Verified With Patient/Guardian: No Final Confirmation: Procedure - Procedural Sedation Procedural Sedation Start Time: 09:06 Procedural Sedation Stop Time: 09:15 Indications: other (Synchronized cardioversion) ASA Class: III Mallampati Airway Score: 2 Preparation: water purifier applied, pulse oximeter, supplemental O2 applied IV Etomidate Dose (mgs): 10 Complications: none Patient Tolerated Procedure: well Medical Decision Making - Lab Data Result diagrams: 04/09/20 08:58 04/09/20 08:58 Lab Results 04/09/20 04/09/20 04/09/20 Range/Units 08:58 08:58 08:58 WBC 10.2 (3.8-10.6) k/uL RBC 4.30 (4.30-5.90) m/uL Hgb 14.0 (13.0-17.5) gm/dL Hct 41.8 (39.0-53.0) % MCV 97.4 (80.0-100.0) fL MCH 32.5 (25.0-35.0) pg MCHC 33.4 (31.0-37.0) g/dL RDW 14.1 (11.5-15.5) % Plt Count 159 (150-450) k/uL Neutrophils % 86 % Lymphocytes % 3 % Monocytes % 7 % Eosinophils % 1 % Basophils % 0 % Neutrophils # 8.8 H (1.3-7.7) k/uL Lymphocytes # 0.3 L (1.0-4.8) k/uL Monocytes # 0.7 (0-1.0) k/uL Eosinophils # 0.1 (0-0.7) k/uL Basophils # 0.0 (0-0.2) k/uL PT 10.1 (9.0-12.0) sec INR 1.0 (<1.2) APTT 25.2 (22.0-30.0) sec VBG pH (7.31-7.41) VBG pCO2 (37-51) mmHg VBG HCO3 (24-28) mmol/L Sodium 130 L (137-145) mmol/L Potassium 4.6 (3.5-5.1) mmol/L Chloride 89 L (98-107) mmol/L Carbon Dioxide 19 L (22-30) mmol/L Anion Gap 22 mmol/L BUN 57 H (9-20) mg/dL Creatinine 10.09 H* (0.66-1.25) mg/dL Est GFR (CKD-EPI)AfAm 6 (>60 ml/min/1.73 sqM) Est GFR (CKD-EPI)NonAf 5 (>60 ml/min/1.73 sqM) Glucose 116 H (74-99) mg/dL Lactic Ac Sepsis Rflx Plasma Lactic Acid Sandor (0.7-2.0) mmol/L Calcium 8.9 (8.4-10.2) mg/dL Magnesium 2.0 (1.6-2.3) mg/dL Total Bilirubin 0.8 (0.2-1.3) mg/dL AST 41 (17-59) U/L ALT 17 (4-49) U/L Alkaline Phosphatase 80 (38-126) U/L Troponin I (0.000-0.034) ng/mL C-Reactive Protein 532.6 H (<10.0) mg/L NT-Pro-B Natriuret Pep pg/mL Total Protein 6.5 (6.3-8.2) g/dL Albumin 3.5 (3.5-5.0) g/dL Blood Type Blood Type Confirm Blood Type Recheck Bld Type Recheck Status Antibody Screen Spec Expiration Date 04/09/20 04/09/20 04/09/20 Range/Units 08:58 08:58 08:58 WBC (3.8-10.6) k/uL RBC (4.30-5.90) m/uL Hgb (13.0-17.5) gm/dL Hct (39.0-53.0) % MCV (80.0-100.0) fL MCH (25.0-35.0) pg MCHC (31.0-37.0) g/dL RDW (11.5-15.5) % Plt Count (150-450) k/uL Neutrophils % % Lymphocytes % % Monocytes % % Eosinophils % % Basophils % % Neutrophils # (1.3-7.7) k/uL Lymphocytes # (1.0-4.8) k/uL Monocytes # (0-1.0) k/uL Eosinophils # (0-0.7) k/uL Basophils # (0-0.2) k/uL PT (9.0-12.0) sec INR (<1.2) APTT (22.0-30.0) sec VBG pH (7.31-7.41) VBG pCO2 (37-51) mmHg VBG HCO3 (24-28) mmol/L Sodium (137-145) mmol/L Potassium (3.5-5.1) mmol/L Chloride (98-107) mmol/L Carbon Dioxide (22-30) mmol/L Anion Gap mmol/L BUN (9-20) mg/dL Creatinine (0.66-1.25) mg/dL Est GFR (CKD-EPI)AfAm (>60 ml/min/1.73 sqM) Est GFR (CKD-EPI)NonAf (>60 ml/min/1.73 sqM) Glucose (74-99) mg/dL Lactic Ac Sepsis Rflx Plasma Lactic Acid Sandor 3.2 H* (0.7-2.0) mmol/L Calcium (8.4-10.2) mg/dL Magnesium (1.6-2.3) mg/dL Total Bilirubin (0.2-1.3) mg/dL AST (17-59) U/L ALT (4-49) U/L Alkaline Phosphatase (38-126) U/L Troponin I 0.247 H* (0.000-0.034) ng/mL C-Reactive Protein (<10.0) mg/L NT-Pro-B Natriuret Pep 53724 pg/mL Total Protein (6.3-8.2) g/dL Albumin (3.5-5.0) g/dL Blood Type Blood Type Confirm Blood Type Recheck Bld Type Recheck Status Antibody Screen Spec Expiration Date 04/09/20 04/09/20 04/09/20 Range/Units 09:58 10:03 10:03 WBC (3.8-10.6) k/uL RBC (4.30-5.90) m/uL Hgb (13.0-17.5) gm/dL Hct (39.0-53.0) % MCV (80.0-100.0) fL MCH (25.0-35.0) pg MCHC (31.0-37.0) g/dL RDW (11.5-15.5) % Plt Count (150-450) k/uL Neutrophils % % Lymphocytes % % Monocytes % % Eosinophils % % Basophils % % Neutrophils # (1.3-7.7) k/uL Lymphocytes # (1.0-4.8) k/uL Monocytes # (0-1.0) k/uL Eosinophils # (0-0.7) k/uL Basophils # (0-0.2) k/uL PT (9.0-12.0) sec INR (<1.2) APTT (22.0-30.0) sec VBG pH 7.42 H (7.31-7.41) VBG pCO2 39 (37-51) mmHg VBG HCO3 25 (24-28) mmol/L Sodium (137-145) mmol/L Potassium (3.5-5.1) mmol/L Chloride (98-107) mmol/L Carbon Dioxide (22-30) mmol/L Anion Gap mmol/L BUN (9-20) mg/dL Creatinine (0.66-1.25) mg/dL Est GFR (CKD-EPI)AfAm (>60 ml/min/1.73 sqM) Est GFR (CKD-EPI)NonAf (>60 ml/min/1.73 sqM) Glucose (74-99) mg/dL Lactic Ac Sepsis Rflx Plasma Lactic Acid Sandor (0.7-2.0) mmol/L Calcium (8.4-10.2) mg/dL Magnesium (1.6-2.3) mg/dL Total Bilirubin (0.2-1.3) mg/dL AST (17-59) U/L ALT (4-49) U/L Alkaline Phosphatase (38-126) U/L Troponin I (0.000-0.034) ng/mL C-Reactive Protein (<10.0) mg/L NT-Pro-B Natriuret Pep pg/mL Total Protein (6.3-8.2) g/dL Albumin (3.5-5.0) g/dL Blood Type O Positive Blood Type Confirm O Positive Blood Type Recheck No Previous Record Bld Type Recheck Status CABO Indicated Antibody Screen NEGATIVE Spec Expiration Date 04/12/2020 - 230204/09/20 Range/Units 10:09 WBC (3.8-10.6) k/uL RBC (4.30-5.90) m/uL Hgb (13.0-17.5) gm/dL Hct (39.0-53.0) % MCV (80.0-100.0) fL MCH (25.0-35.0) pg MCHC (31.0-37.0) g/dL RDW (11.5-15.5) % Plt Count (150-450) k/uL Neutrophils % % Lymphocytes % % Monocytes % % Eosinophils % % Basophils % % Neutrophils # (1.3-7.7) k/uL Lymphocytes # (1.0-4.8) k/uL Monocytes # (0-1.0) k/uL Eosinophils # (0-0.7) k/uL Basophils # (0-0.2) k/uL PT (9.0-12.0) sec INR (<1.2) APTT (22.0-30.0) sec VBG pH (7.31-7.41) VBG pCO2 (37-51) mmHg VBG HCO3 (24-28) mmol/L Sodium (137-145) mmol/L Potassium (3.5-5.1) mmol/L Chloride (98-107) mmol/L Carbon Dioxide (22-30) mmol/L Anion Gap mmol/L BUN (9-20) mg/dL Creatinine (0.66-1.25) mg/dL Est GFR (CKD-EPI)AfAm (>60 ml/min/1.73 sqM) Est GFR (CKD-EPI)NonAf (>60 ml/min/1.73 sqM) Glucose (74-99) mg/dL Lactic Ac Sepsis Rflx Y Plasma Lactic Acid Sandor (0.7-2.0) mmol/L Calcium (8.4-10.2) mg/dL Magnesium (1.6-2.3) mg/dL Total Bilirubin (0.2-1.3) mg/dL AST (17-59) U/L ALT (4-49) U/L Alkaline Phosphatase (38-126) U/L Troponin I (0.000-0.034) ng/mL C-Reactive Protein (<10.0) mg/L NT-Pro-B Natriuret Pep pg/mL Total Protein (6.3-8.2) g/dL Albumin (3.5-5.0) g/dL Blood Type Blood Type Confirm Blood Type Recheck Bld Type Recheck Status Antibody Screen Spec Expiration Date Critical Care Time Critical Care Time: Yes Total Critical Care Time: 33 Disposition Clinical Impression: Bacteremia Disposition: ADMITTED IP TO THIS [facility] Condition: Critical Decision Time: 14:08
[2020-04-09] MEDS: NICOTINE 21MG/24HR PATCH TRANSDERM SCH (15:16)
[2020-04-09] MEDS: FAMOTIDINE 20 MG/2 ML VIAL IV SCH (15:16)
[2020-04-09 17:09] LABS: Appearance,Urine Cloudy (Clear); Bilirubin,Urine Negative (Negative); Blood,Urine Small (Negative); Color,Urine Yellow; Glucose,Urine (UA) Trace (Negative); Hyaline Casts,Urine 1 /lpf (0-2); Ketones,Urine Negative (Negative); Leukocyte Esterase,Urine Small (Negative); Nitrite,Urine Negative (Negative); PH, Urine 8.5 (5.0-8.0); Protein,Urine 2+ (Negative); RBC,Urine 5 /hpf (0-5); Squamous Epithelial Cell,Urine 1 /hpf (0-4); Urobilinogen,Urine <2.0 mg/dL (<2.0); WBC,Urine 16 /hpf (0-5)
[2020-04-09] MEDS: MIDODRINE 5 MG TAB PO SCH (18:35)
[2020-04-09] MEDS: PRAVASTATIN SODIUM 20 MG TAB PO SCH (21:57)
--- NOTE | 2020-04-10 00:10 | CONS ---
CONSULTATION CHIEF COMPLAINT: Chest pain, abnormal EKG and elevated troponin. Bienvenido is a 64-year-old gentleman with end-stage renal disease on hemodialysis, dyslipidemia, hypothyroidism, who presented to hospital yesterday with symptoms of fever, chills, underwent blood cultures and left against medical advice. This morning his blood cultures came back positive. He was called and asked to come in. Following that patient became panicky, agitated and had palpitations and also had some chest pain with it. He came to the ER. He was found to be in atrial fibrillation with rapid ventricular rate and his EKG also showed ST-segment elevation in the precordial leads. He became hypotensive underwent electrical cardioversion following which he went into sinus rhythm. EKG shows sinus rhythm with frequent PVCs and T-wave inversions. I do not see an EKG done immediately after the first EKG actually already showed that the ST segments resolved. At the time of my evaluation, the patient is in the ICU. He is in normal sinus rhythm with PVCs and an EKG I performed does not show any ST-segment elevation. The patient's blood cultures are positive for gram-positive bacilli. The patient will probably need a heart catheterization to evaluate for ischemic heart disease. I will obtain a 2D echo to assess his LV function and to rule out any pericardial effusion. I will start him on an aspirin, resume the pravastatin. I really cannot give him anything else given the history of hypotension and the need for midodrine. The patient does not want us to do any invasive procedures. I will see how he does and then make a decision later. At the moment, he does not need to go through cardiac catheterization. PAST MEDICAL HISTORY: Significant for end-stage renal disease on hemodialysis, dyslipidemia, hypothyroidism. CURRENT MEDICATIONS: Current medications include Pravachol 10 q. daily, midodrine, Synthroid, Keflex, and PhosLo. ALLERGIES: There are no known drug allergies. FAMILY HISTORY: Negative for premature coronary artery disease. SOCIAL HISTORY: Negative for current smoking, EtOH abuse, or drug abuse. REVIEW OF SYSTEMS: HEENT is unremarkable. CARDIAC: As described above. RESPIRATORY: As described above. GI: Negative. GENITOURINARY: Significant for end-stage renal disease on hemodialysis. PSYCHOSOCIAL: Negative. ENDOCRINE: Negative. HEMATOLOGIC: Negative. CONSTITUTIONAL: Significant for fatigue, tiredness. PHYSICAL EXAMINATION: On exam, comfortable at rest. Heart rate is 84 beats per minute. Blood pressure is 100/60. Respiratory rate is 18. O2 saturation is 100% on 2 L. There is no jugular venous distention. Carotid upstroke is normal. There is no bruit. Chest exam reveals good air entry bilaterally. Heart exam reveals first and second heart sounds. No gallop. There is a systolic murmur left lower sternal border. Abdomen is soft. Exam of extremities reveal trace edema. Peripheral pulses are felt. LABS: Labs show a hemoglobin of 14, platelet count is 150. Two sets of troponins are in the [place]uther[place] zone at 0.2 secondary to renal failure. BNP is elevated at 57,000. The C- reactive protein is elevated. ASSESSMENT: 1. Acute coronary syndrome. 2. Paroxysmal atrial fibrillation, status post cardioversion. 3. End-stage renal disease on hemodialysis. 4. Elevated troponin secondary to renal failure. 5. Elevated BNP secondary to sepsis. PLAN: I will continue with the IV heparin, obtain a 2D echo. Resume aspirin and statin. MMODL / IJN: [id number] /
[2020-04-10] MEDS ORDERED: TEMAZEPAM 15 MG CAP PO PRN ×2 (03:30)
[2020-04-10] MEDS ORDERED: HALOPERIDOL LACTATE 5 MG/ML 1 ML VIAL IVP PRN ×2 (03:30)
[2020-04-10] MEDS ORDERED: LORazepam 2 MG/ML INJ IV PRN (03:30)
[2020-04-10] MEDS: LORazepam 2 MG/ML INJ IV PRN (04:01)
[2020-04-10] MEDS: CALCIUM ACETATE 667 MG TAB PO SCH ×4 (04:13→18:10)
[2020-04-10 04:47] LABS: Basophils % (A) 0 %; Eosinophils # (A) 0.1 k/uL (0-0.7); Eosinophils % (A) 1 %; HCT 34.4 % (39.0-53.0); HGB 11.7 gm/dL (13.0-17.5); Lymphocytes # (A) 0.3 k/uL (1.0-4.8); Lymphocytes % (A) 5 %; MCH 33.3 pg (25.0-35.0); Mean Platelet Volume 9.2; Monocytes # (A) 0.5 k/uL (0-1.0); Monocytes % (A) 9 %; Neutrophils % (A) 82 %; Platelet Count 124 k/uL (150-450); RBC 3.51 m/uL (4.30-5.90); RDW 14.1 % (11.5-15.5); WBC 6.1 k/uL (3.8-10.6)
[2020-04-10 05:02] LABS: Calcium 8.1 mg/dL (8.4-10.2); Phosphorus 5.5 mg/dL (2.5-4.5); Potassium 4.3 mmol/L (3.5-5.1)
[2020-04-10] MEDS: MIDODRINE 5 MG TAB PO SCH ×2 (08:35→18:10)
[2020-04-10] MEDS: HEPARIN SODIUM,PORCINE 5,000 UNIT/ML 1 ML VIAL IV PRN ×2 (08:35→17:43)
[2020-04-10] MEDS: NICOTINE 21MG/24HR PATCH TRANSDERM SCH (08:36)
[2020-04-10] MEDS: ASPIRIN 81 MG PO SCH (08:37)
[2020-04-10] MEDS: PIPERACILLIN-TAZOBACTAM 3.375 GM in SODIUM CHLORIDE 0.9% 100 ML IVPB SCH ×2 (08:37→20:05)
[2020-04-10] MEDS: FAMOTIDINE 20 MG/2 ML VIAL IV SCH (08:37)
--- NOTE | 2020-04-10 09:29 | CONS ---
CONSULTATION REASON FOR CONSULTATION: Bacteremia. HISTORY OF PRESENT ILLNESS: The patient is a 64-year-old male with a past medical history significant for end-stage renal disease, on hemodialysis through the left arm AV fistula Friday, Friday, Friday. The patient presented to the ER initially yesterday with chief complaints of fever and not feeling well. The patient's symptoms started on Friday with sudden onset of fever with rigors and chills. The patient denies having any headache or URI symptoms. Denies having any chest pain or shortness of breath. No cough. No significant abdominal pain, nausea, vomiting, or any diarrhea. With these symptoms, the patient was evaluated in the ER yesterday. The patient did have blood cultures drawn. Subsequently the patient left AMA and subsequently presented to hospital this morning with persistent symptoms. He has been complaining of feeling anxious and some heaviness in the chest. Blood culture was drawn yesterday. Did come back positive Enterobacter cloacae complex that prompted this infectious disease consultation. Patient currently has been started on Zosyn. Currently getting 3.75 g q.12 and has received cefepime in the ER. The patient is currently afebrile. Workup in the ER so far includes a chest x-ray that was done shows borderline cardiomegaly. The patient did have an echocardiogram that did not show any abnormality such as vegetation, slightly thickened though. Patient did have a UA with small leukocyte esterase, 116 WBC. REVIEW OF SYSTEMS: Positive points have been mentioned in HPI. Rest of systems are negative. PAST MEDICAL HISTORY: End-stage disease on hemodialysis. The patient did have previous history of PD catheter associated abscesses and peritonitis, those have been discontinued. PAST SURGICAL HISTORY: AV fistula and PD catheter placement, subsequent removal and drainage of an abscess. SOCIAL HISTORY: The patient is currently everyday smoker. Occasionally drinks. No drug use. FAMILY HISTORY: No pertinent findings noticed. ALLERGIES: No known drug allergies. MEDICATIONS: The patient is currently on Tylenol, aspirin, PhosLo, Pepcid, heparin, midodrine, Narcan, nicotine patch, Zosyn, Pravachol, IV fluid. PHYSICAL EXAMINATION: Blood pressure is 100/56, pulse 84, temperature 97.9. He is 100% on 2 L nasal cannula. General description is a middle-aged male up in the chair in no distress. No tachypnea or accessory muscle of respiration use. HEENT: Examination shows no pallor or scleral icterus. Oral mucosa membranes dry. No pharyngeal erythema or thrush. NECK: Trachea central. No thyromegaly. LUNGS unlabored breathing, clear to auscultation anteriorly. No wheeze or crackles. HEART S1, S2. Regular rate and rhythm. ABDOMEN: Soft, no guarding, no rigidity. No organomegaly. Slight distention but no tenderness. EXTREMITIES are no edema of the feet. SKIN: No rash or mass palpable. Left arm AV fistula site looks clean. NEUROLOGICALLY: The patient is awake, alert, oriented times three. Mood and affect normal. LABS: Hemoglobin is 14.3, white count 10.2, BUN of 57, creatinine is 10.09. UA was mildly positive. Blood culture with Enterobacter cloacae complex. DIAGNOSTIC IMPRESSION AND PLAN: Patient with Enterobacter bacteremia which is usually of the gut or urine origin. This patient with dialysis and hardly makes any urine. Clinically doubt urinary source,will be more likely abdominal source for which the patient did have further workup so far. Chest x-ray has been negative and echocardiogram did not show any acute abnormality. PLAN: 1. Blood cultures repeat to document clearance of bacteremia. 2. We will check a CT of abdomen and pelvis with oral contrast to rule out abdominal pathology. 3. Zosyn 3.735 g q12h to continue. 4. We will follow up on clinical condition and culture to further adjust medication if needed. Thank you for this consultation. Will follow this patient with you. MMODL / IJN: [id number] /
--- NOTE | 2020-04-10 11:23 | PN ---
PROGRESS NOTE Kaleb is a 64-year-old gentleman who is admitted to hospital with gram-negative septicemia and had an episode of chest pain and atrial fibrillation. He converted back to sinus rhythm following defibrillation in the ER. He had a transient ST-segment elevation when he was in atrial fibrillation. Subsequently, the ST segment elevation resolved. He had elevated troponin from 0.2 to 1.5 to 4.3. The patient opted not to undergo cardiac catheterization at this time. He is currently on aspirin, IV heparin and Midodrine. We are not able to give him beta blockers or GEE inhibitors because of hypotension. An echocardiogram on this admission revealed an ejection fraction of 30% to 35% The patient is currently on IV antibiotics. On exam, heart rate is 90 beats per minute. Blood pressure is 99/69, respiratory rate 16. There is no jugular venous distention. Chest exam reveals diminished air entry at the bases. I do not hear any crackles or rhonchi. Heart exam reveals first and second heart sounds. Ejection systolic murmur in the aortic area. Abdomen is soft. Exam of extremities reveals mild edema. Peripheral pulses are felt. Labs show a hemoglobin of 11.7, potassium is 4.3, creatinine is 10.5. ASSESSMENT: 1. Paroxysmal atrial fibrillation status post cardioversion. 2. End-stage renal disease on hemodialysis. 3. Enterobacter septicemia. 4. Acute coronary syndrome. 5. Ischemic cardiomyopathy. PLAN: I will continue him on his current medications including IV heparin. The patient will need a cardiac catheterization. He is going to have blood cultures to document resolution of the bacteremia and I hope patient will agree to have this done on this admission. MMODL / IJN: [id number] /
[2020-04-10] MEDS ORDERED: SODIUM CHLORIDE 0.9% 1,000 ML IV SCH (11:30)
[2020-04-10] MEDS: HEPARIN SOD,PORK IN 0.45% NACL 25,000 UNIT in 0.45% NACL 1 250ML.BAG IV SCH (12:07)
[2020-04-10] MEDS: SODIUM CHLORIDE 0.9% 1,000 ML IV SCH (12:09)
--- NOTE | 2020-04-10 13:30 | P.PN ---
Subjective Progress Note Date: 04/10/20 Principal diagnosis: Gram-negative sepsis and bacteremia 64-year-old male patient with a incisional disease is currently on hemodialysis the patient undergoes dialysis 3 times a week MWF through a AV fistula. The patient presented to the ED with fever and lethargic and generalized weakness and constipation symptoms. In fact came into the emergency yesterday he signed himself AMA. He returned for the same symptoms and he was found to have a possible culture with gram-negative bacillus. No nausea. No vomiting. No abdominal pain. His been having regular bowel movements. No chest pain. No cough or sputum production. He is urine output is minimal at this point in ti al. In the ED, the patient was also found to have a new onset atrial fibrillation with rapid ventricular response. He was borderline hypotensive. He was not requiring any pressors. EKG showed a atrial fibrillation rhythm and based on some underlying hypotension, the patient underwent a cardioversion emergency department and subsequently he woke converted into normal sinus rhythm. The current EKG showing sinus with some ST segment changes for which cardiology was asked to see the patient and no intervention was recommended. The patient is currently in the intensive care unit. His serum creatinine is at 8.4 with a BUN of 130. Glucose is 117. Lactic acid level was elevated at 3.2. Troponins are 0.24 and a proBNP level is 57,002 100. Chest x-ray showed cardiomegaly. The patient was given a liter of normal saline, started on IV heparin, started on amiodarone drip and moved to the intensive care unit. He is currently on 2 L of oxygen by nasal cannula with a pulse ox of 100%. He is current antibiotic coverage is IV Zosyn. Reevaluated today on 04/10/20, patient remains in the ICU, remains on Zosyn for what seems to be Enterobacter cloaca bacteremia. Exact source of the infection is not clear, could be skin related or could be urine related. Nonetheless, the patient is responding well to treatment, feeling better today, denies any cough wheezing or shortness of breath. Denies any pulmonary symptoms. Denies any nausea vomiting or abdominal pain. Denies any dysuria frequency or urgency. Patient does make urine, however not much. He is on hemodialysis, and he will be hemodialyzed again today. CBC is relatively unremarkable, electrolytes are unremarkable except for low sodium of 129 BUN is 69 and creatinine is 10.59. Repeat blood cultures yesterday have been negative. The blood culture from 04/08 was positive for Enterobacter cloaca. Objective - Vital Signs Vital signs: Vital Signs Temp 97.8 F 04/10/20 12:00 Pulse 77 04/10/20 12:00 Resp 12 04/10/20 12:00 BP 90/55 04/10/20 11:00 Pulse Ox 94 L 04/10/20 11:00 Intake & Output 04/09/20 04/10/20 04/10/20 18:59 06:59 18:59 Intake Total 290 800 510.000 Output Total 30 60 0 Balance 260 740 510.000 Weight 80.6 kg 81.4 kg Intake: IV 290 700 260 Piperacillin-Tazobactam 3 100 100 .375 gm In Sodium Chloride 0.9% 100 ml @ 25 mls/hr IVPB Q12HR [facility] Rx #:[id number] Sodium Chloride 0.9% 1, 290 600 160 000 ml @ 50 mls/hr IV . Q20H [facility] Rx#:[id number] Intake, IV Titration 250.000 Amount Heparin Sod,Pork in 0.45% 250.000 NaCl 25,000 unit In 0.45 % NaCl 1 250ml.bag @ 12 UNITS/KG/HR 9.525 mls/hr IV .Q24H [facility] Rx#: [id number] Oral 100 Output: Urine 30 60 0 Other: Voiding Method Urinal Urinal Urinal - Exam Physical Exam: Revealed a 64-year-old white male in no distress. Head: Atraumatic, normocephalic. HEENT:[Neck is supple.] [No neck masses.] [No thyromegaly.] [No JVD.] Chest: [Clear throughout, no crackles, no rhonchi, no wheezes.] Symmetrical chest expansion. No chest wall tenderness. Cardiac Exam: Regular rhythm, patient converted to sinus rhythm apparently last night., no S3 gallop. Normal S1 and S2. No murmur. Abdomen: [Soft, nontender, no megaly, no rebound, no guarding, normal bowel sounds.] Extremities: [No clubbing, no edema, no cyanosis.] Left arm AV fistula is noted with positive bruit and thrill. Neurological Exam: [No focal neurologic deficit.] Alert and oriented 3. Psychiatric: Normal mood, affect and normal mental status examination. - Labs CBC & Chem 7: 04/10/20 03:58 04/10/20 03:58 Labs: Abnormal Lab Results - Last 24 Hours (Table) 04/09/20 04/09/20 04/09/20 Range/Units 14:12 14:12 14:12 RBC (4.30-5.90) m/uL Hgb (13.0-17.5) gm/dL Hct (39.0-53.0) % Plt Count (150-450) k/uL Lymphocytes # (1.0-4.8) k/uL APTT 44.3 H (22.0-30.0) sec Sodium (137-145) mmol/L Chloride (98-107) mmol/L BUN (9-20) mg/dL Creatinine (0.66-1.25) mg/dL Calcium (8.4-10.2) mg/dL Phosphorus 5.3 H (2.5-4.5) mg/dL Troponin I 1.540 H* (0.000-0.034) ng/mL Urine pH (5.0-8.0) Urine Protein (Negative) Urine Glucose (UA) (Negative) Urine Blood (Negative) Ur Leukocyte Esterase (Negative) Urine WBC (0-5) /hpf 04/09/20 04/09/20 04/10/20 Range/Units 16:30 20:20 03:58 RBC (4.30-5.90) m/uL Hgb (13.0-17.5) gm/dL Hct (39.0-53.0) % Plt Count (150-450) k/uL Lymphocytes # (1.0-4.8) k/uL APTT (22.0-30.0) sec Sodium 129 L (137-145) mmol/L Chloride 93 L (98-107) mmol/L BUN 69 H (9-20) mg/dL Creatinine 10.59 H* (0.66-1.25) mg/dL Calcium 8.1 L (8.4-10.2) mg/dL Phosphorus 5.5 H (2.5-4.5) mg/dL Troponin I 4.320 H* (0.000-0.034) ng/mL Urine pH 8.5 H (5.0-8.0) Urine Protein 2+ H (Negative) Urine Glucose (UA) Trace H (Negative) Urine Blood Small H (Negative) Ur Leukocyte Esterase Small H (Negative) Urine WBC 16 H (0-5) /hpf 04/10/20 04/10/20 Range/Units 03:58 03:58 RBC 3.51 L (4.30-5.90) m/uL Hgb 11.7 L (13.0-17.5) gm/dL Hct 34.4 L (39.0-53.0) % Plt Count 124 L (150-450) k/uL Lymphocytes # 0.3 L (1.0-4.8) k/uL APTT 36.3 H (22.0-30.0) sec Sodium (137-145) mmol/L Chloride (98-107) mmol/L BUN (9-20) mg/dL Creatinine (0.66-1.25) mg/dL Calcium (8.4-10.2) mg/dL Phosphorus (2.5-4.5) mg/dL Troponin I (0.000-0.034) ng/mL Urine pH (5.0-8.0) Urine Protein (Negative) Urine Glucose (UA) (Negative) Urine Blood (Negative) Ur Leukocyte Esterase (Negative) Urine WBC (0-5) /hpf Microbiology - Last 24 Hours (Table) 04/09/20 09:35 Blood Culture - Preliminary Blood No Growth after 24 hours Assessment and Plan Assessment: Impression: Gram-negative bacteremia and sepsis secondary to Enterobacter cloaca, most likely source is urine. Lactic acidosis secondary to sepsis, but no evidence of septic shock. New onset atrial fibrillation, presently patient is in sinus rhythm. End-stage renal disease, on hemodialysis. Polycystic kidney disease. Tobacco dependence syndrome. Chronic abdominal wall hernia, no strangulation or incarceration. Recommendation: Continue present treatment plan including IV Zosyn. Continue gentle hydration. No need for pressors at this point. Continue heparin. Cardiology to evaluate regarding his new onset atrial fibrillation which is presently resolved. Nephrology to evaluate. Consider transferring the patient out of the ICU to a monitor bed on selective today. We'll continue to follow Time with Patient: Less than 30
[2020-04-10] MEDS ORDERED: GELATIN SPONGE,ABSORB (LARGE) 1 EACH SPONGE ONE (14:00)
--- NOTE | 2020-04-10 15:35 | CONS ---
CONSULTATION REASON FOR CONSULT: End-stage renal disease. HISTORY OF PRESENT ILLNESS: Patient is a 64-year-old male with end-stage renal disease, on hemodialysis on a Friday, Friday, Friday schedule. He was admitted to the hospital with complaints of weakness, fever. He did sign himself AMA from the ER, but his blood cultures drawn at that time grew Gram-negative bacilli, and patient did come back. He was also found to be in atrial fibrillation with RVR. He had cardioversion and is currently in sinus rhythm. There is no evidence of erythema around his AV graft site. Pt has a bovine vein AVG Patient's blood culture did grow Enterobacter cloacae on 04/08/2020. Repeat blood cultures on 04/09/2020 show no growth so far. PAST MEDICAL HISTORY: End-stage renal disease, coronary artery disease CKD mineral bone disorder, dyslipidemia, hypothyroidism. PAST SURGICAL HISTORY: Multiple surgeries for AV graft and AV fistula, PD catheter insertion and removal, PermCath placement and removal. SOCIAL HISTORY: Patient is a current everyday smoker. He consumes alcohol also. MEDICATIONS: Medications at home prior to admission included Keflex, PhosLo, Synthroid, midodrine, pravastatin, renal vitamins. ALLERGIES: NO KNOWN DRUG ALLERGIES. REVIEW OF SYSTEMS: As per HPI. Other systems negative. Patient denied any abdominal pain, nausea or vomiting. PHYSICAL EXAMINATION: On examination, patient is comfortable, awake, not in any acute distress. Blood pressure was 98/63, heart rate 78 per minute. He is afebrile. EXAMINATION OF THE HEART: S1 and S2. EXAMINATION OF LUNGS: Bilateral breath sounds are heard. Decreased breath sounds at bases. ABDOMEN: Soft, non-tender. Examination of lower extremities shows no edema. LABS: Labs show hemoglobin 11.7, sodium 129, potassium 4.3, chloride 93, creatinine 10.5. Phosphorus was 5.5, troponin 4.3. ASSESSMENT: 1. End-stage renal disease, on hemodialysis on a Friday, Friday, Friday schedule via left arm AV graft. No evidence of infection at the graft site. The patient will be dialyzed today. 2. Atrial fibrillation with rapid ventricular response, currently normal sinus rhythm, status post cardioversion. 3. Enterobacter cloacae bacteremia, being followed by Infectious Disease. Source not clear. Maintained on Zosyn. 4. Hypothyroidism. 5. Chronic kidney disease mineral bone disorder. Phosphorus at 5.5. Patient's PhosLo will be resumed. PLAN: Hemodialysis today. Maintain patient on midodrine. Increase dose to 10 mg b.i.d. UF about 1 to 1-1/2 L as tolerated. No evidence of volume overload at this time. Thank you for this consultation. Will continue to follow the patient with you during his hospitalization. JUNIOR / RESHMAN: [id number] / MTDD
[2020-04-10] MEDS: IOPAMIDOL CONTRAST (ORAL USE) VIAL PO PRN ×2 (15:58→16:53)
--- NOTE | 2020-04-10 18:06 | PN ---
PROGRESS NOTE DATE OF SERVICE: 04/10/2020 REASON FOR FOLLOWUP: Enterobacter bacteremia. INTERVAL HISTORY: The patient is currently afebrile. The patient is breathing comfortably. The patient denies having any chest pain or shortness of breath or cough. No nausea, no vomiting. No abdominal pain or any diarrhea. PHYSICAL EXAMINATION: Blood pressure is 113/77, pulse of 68, temperature 97.8. General description is a middle-aged male lying in bed in no distress. RESPIRATORY SYSTEM: Unlabored breathing. Clear to auscultation anteriorly. HEART: S1, S2. Regular rate and rhythm. ABDOMEN: Soft. No tenderness. LABS: Hemoglobin 11.7, white count 6.1, creatinine 10.59. Blood cultures from admission have been negative so far. DIAGNOSTIC IMPRESSION AND PLAN: Patient with enterobacter bacteremia, question of abdominal source. We are waiting for the CT of abdomen and pelvis to finalize. The patient is currently covered with Zosyn; to continue while waiting for the workup to be completed. Family at the bedside. Questions were answered. MMODL / IJN: [id number] /
--- NOTE | 2020-04-10 18:09 | CT ---
EXAMINATION TYPE: CT abdomen pelvis wo con DATE OF EXAM: 04/10/2020 COMPARISON: 02/08/2010 HISTORY: abdominal pain, fever CT DLP: 738 mGycm Automated exposure control for dose reduction was used. Multiple axial sections were obtained from the diaphragm to the floor of the pelvis without contrast. There is oral contrast. There are small bilateral pleural effusions. There is mild subsegmental atelectasis at the posterior lung bases. Heart size is normal. There is no pericardial effusion. There are numerous cysts throughout the liver that measure up to 5 cm. Spleen is intact. There is sma ll hiatal hernia. There is no evidence of pancreatic mass. The bile ducts are not dilated. There is 3.4 cm low-density left adrenal mass. There is a oval-shaped 3 cm low-density right adrenal mass. There is extensive replacement of the kidneys with cysts. These measure up to 3 cm. There is no hydro nephrosis. Some of the cysts contain calcium. There is no retroperitoneal adenopathy. Abdominal aorta is atheromatous. Bladder distends smoothly. Prostate is intact. There is no inguinal hernia. There are numerous divert icula in the sigmoid colon. I see no sign of diverticulitis. The appendix is posterior and appears no rmal. There is no ascites or free air. There is no bowel obstruction. There is right anterior abdominal wall ventral hernia that contains some omental fat and measures 4 c m in diameter. There is some incarceration of the fat. Lumbar vertebra have normal alignment. There is posterior disc herniations at L3-4 L4-5. There is dev elopmentally adequate spinal canal. There is no lumbar compression fracture. There is no evidence of focal bone destruction. Bony pelvis appears intact. IMPRESSION: There is advanced polycystic disease of the liver and kidneys. There is some progression compared to old exam. Sigmoid diverticulosis without diverticulitis. Right anterior abdominal wall incarcerated ventral her yelena containing omental fat appears new compared to old exam. Small pleural effusions with minimal subsegmental atelectasis appears new compared to old exam.
[2020-04-10] MEDS: PRAVASTATIN SODIUM 20 MG TAB PO SCH (20:05)
[2020-04-11 01:25] VITALS: RESP 18
[2020-04-11] MEDS: CALCIUM ACETATE 667 MG TAB PO SCH ×2 (06:05→12:33)
[2020-04-11] MEDS: MIDODRINE 5 MG TAB PO SCH (06:05)
[2020-04-11 06:40] LABS: Appearance,Urine Clear (Clear); Bacteria,Urine Rare /hpf; Bilirubin,Urine Negative (Negative); Blood,Urine Small (Negative); Color,Urine Yellow; Glucose,Urine (UA) Negative (Negative); Hyaline Casts,Urine 1 /lpf (0-2); Ketones,Urine Negative (Negative); Leukocyte Esterase,Urine Trace (Negative); Nitrite,Urine Negative (Negative); PH, Urine 8.5 (5.0-8.0); Protein,Urine 2+ (Negative); RBC,Urine 6 /hpf (0-5); Squamous Epithelial Cell,Urine <1 /hpf (0-4); Urobilinogen,Urine <2.0 mg/dL (<2.0); WBC,Urine 9 /hpf (0-5)
[2020-04-11 07:00] LABS: Basophils % (A) 0 %; Eosinophils # (A) 0.1 k/uL (0-0.7); Eosinophils % (A) 1 %; HCT 35.3 % (39.0-53.0); HGB 11.4 gm/dL (13.0-17.5); Lymphocytes # (A) 0.4 k/uL (1.0-4.8); Lymphocytes % (A) 7 %; MCH 32.3 pg (25.0-35.0); MCHC 32.3 g/dL (31.0-37.0); MCV 100.2 fL (80.0-100.0); Macrocytosis Slight; Mean Platelet Volume 9.3; Monocytes # (A) 0.6 k/uL (0-1.0); Monocytes % (A) 9 %; Neutrophils # (A) 4.8 k/uL (1.3-7.7); Neutrophils % (A) 78 %; Platelet Count 139 k/uL (150-450); RBC 3.52 m/uL (4.30-5.90); RDW 14.4 % (11.5-15.5); WBC 6.1 k/uL (3.8-10.6)
[2020-04-11 07:19] LABS: Calcium 8.4 mg/dL (8.4-10.2); Potassium 4.1 mmol/L (3.5-5.1)
[2020-04-11 08:08] VITALS: PULSE 87
[2020-04-11] MEDS: HEPARIN SODIUM,PORCINE 5,000 UNIT/ML 1 ML VIAL IV PRN (08:36)
[2020-04-11] MEDS: PIPERACILLIN-TAZOBACTAM 3.375 GM in SODIUM CHLORIDE 0.9% 100 ML IVPB SCH (08:38)
[2020-04-11] MEDS: ASPIRIN 81 MG PO SCH (08:39)
[2020-04-11] MEDS: NICOTINE 21MG/24HR PATCH TRANSDERM SCH (08:39)
[2020-04-11] MEDS ORDERED: FAMOTIDINE 20 MG TAB PO SCH (09:00)
[2020-04-11] MEDS: LORazepam 2 MG/ML INJ IV PRN (09:10)
[2020-04-11] MEDS: HEPARIN SOD,PORK IN 0.45% NACL 25,000 UNIT in 0.45% NACL 1 250ML.BAG IV SCH (09:39)
--- NOTE | 2020-04-11 10:55 | CDI ---
Documentation Clarification Form Date: 04/11/2020 10:44:46 AM From: Janet Mota CCS, CCDS Admit Date: 04/09/2020 10:32:00 AM Patient Name: Kirill Bergman Visit Number: [id number] Discharge Date: ATTENTION: The Clinical Documentation Specialists (CDI) and [facility] Coding Staff appreciate your assistance in clarifying documentation. Please respond to the clarification below the line at the bottom and electronically sign. The CDI & [facility] Coding staff will review the response and follow-up if needed. Please note: Queries are made part of the Legal Health Record. If you have any questions, please contact the author of this message via ITS. Dr. Norbert Gallegos: Per the 04/09 ED note: "Patient states he's been feeling lightheaded since being seen here yesterday. Vital signs upon arrival today shows blood pressure of 75/49. His heart rate of 92 on rest vital signs within acceptable limits. Bedside patient was tachycardic with heart rates anywhere between 140 and 160. It did appear to be irregular. EKG was obtained showing atrial fibrillation rapid ventricular rate. There was ST elevation seen in the precordial leads. Given clinical presentation there is concern of unstable atrial fibrillation. Informed consent was performed. Patient was given 10 mg of Etomidate and underwent synchronous cardioversion. Patient is in normal sinus rhythm." History/Risk factors: ESRD on Hemodialysis, Smoker. Clinical Indicators: Presented & treated per ED note above. EKGs 04/09: #1: R 155 Atrial fibrillation w/RVR, Lt axis deviation, Inferior infarct, age undetermined, Anterolateral injury pattern, Acute HI/STEMI, Abnormal EKG. #2: R 152 Undetermined rhythm, Inferior infarct age undetermined. #3: R 91 Undetermined rhythm, Inferior infarct age undetermined, T wave abnormal, consider anterolateral ischemia. #4: R 82 sinus rhythm w/frequent PVCs & fusion complexes, Possible lateral infarct age undetermined, Inferior infarct age undetermined. Treatment: Cardioversion, IV Amidate, IV Heparin drip, po ASA. In your professional opinion, can you please clarify the type of Arrhythmia, if known? Ventricular tachycardia ruled out Ventricular tachycardia Other, please specify Unable to determine (Last Revision: January 2018) seek opinion from er MTDD
[2020-04-11] MEDS ORDERED: METOPROLOL TARTRATE 25 MG TAB PO SCH (12:15)
--- NOTE | 2020-04-11 12:15 | P.PN ---
Subjective Progress Note Date: 04/11/20 This is a 64-year-old gentleman with end-stage renal disease on hemodialysis, hyperlipidemia, hypothyroidism, who presented to the hospital with symptoms of fevers, chills, underwent blood cultures and left AGAINST MEDICAL ADVICE, his blood cultures ended up coming back positive, he was called and asked to come back to the hospital. Upon presentation to the emergency room he was found to be in atrial fibrillation with a rapid ventricular response and his EKG also showed some questionable ST segment elevation in the precordial leads. He became hypotensive and underwent electrical cardioversion following he went into sinus rhythm. He was then noted on the monitor to have frequent PVCs with T- wave inversion. Patient was seen by Dr. Anaya and followed in the intensive care unit. Blood cultures on the patient came back positive for gram-positive bacilli. Patient stated to Dr. Gallegos that he does not want to have any invasive procedures done. Echocardiogram with Doppler study was performed which revealed moderately severe impairment of the LV function with a documented ejection fraction of 30-35%. Blood pressure this morning 138/70 with a heart rate in the 70s to 80s. White blood cell count 6.1, hemoglobin 11.4, platelet count 139. Sodium 136, potassium 4.1, BUN 40, creatinine 7.7. Objective - Vital Signs Vital signs: Vital Signs Temp 97.3 F L 04/11/20 04:00 Pulse 87 04/11/20 08:00 Resp 18 04/11/20 08:00 BP 138/76 04/11/20 08:00 Pulse Ox 97 04/11/20 08:00 Intake & Output 04/10/20 04/11/20 04/11/20 18:59 06:59 18:59 Intake Total 570.566 600 429.434 Output Total 1500 5 Balance -929.434 595 429.434 Weight 82.5 kg Intake: IV 260 600 Piperacillin-Tazobactam 3 100 100 .375 gm In Sodium Chloride 0.9% 100 ml @ 25 mls/hr IVPB Q12HR [facility] Rx #:[id number] Sodium Chloride 0.9% 1, 160 500 000 ml @ 50 mls/hr IV . Q20H [facility] Rx#:[id number] Intake, IV Titration 310.566 189.434 Amount Heparin Sod,Pork in 0.45% 310.566 189.434 NaCl 25,000 unit In 0.45 % NaCl 1 250ml.bag @ 12 UNITS/KG/HR 9.525 mls/hr IV .Q24H [facility] Rx#: [id number] Oral 240 Output: Urine 0 5 Hemodialysis 1500 Other: Voiding Method Urinal Urinal Urinal # Voids 1 - Exam Gen. appearance, comfortable alert and oriented nonacute distress Head exam was generally normal. There was no scleral icterus or corneal arcus. Mucous membranes were moist. Neck was supple and without jugular venous distension, thyromegaly, or carotid bruits. Carotids were easily palpable bilaterally. There was no adenopathy. Lungs were clear to auscultation and percussion, and with normal diaphragmatic excursion. No wheezes or rales were noted. Heart sounds irregular S1-S2 consistent with atrial fibrillation with rapid ventricular response. No cervical murmurs appreciated. Abdominal exam revealed normal bowel sounds. The abdomen was soft, non-tender, and without masses, organomegaly, or appreciable enlargement of the abdominal aorta. The patient has anterior abdominal wall hernias which is easily reducible and there is no evidence of any incarceration or strangulation. Examination of the extremities revealed easily palpable radial, femoral and pedal pulses. There was no cyanosis, clubbing or edema. The patient is a left arm AV fistula with a positive bruit and a thrill Examination of the skin revealed no evidence of significant rashes, suspicious appearing nevi or other concerning lesions. Neurologically awake and alert and is no focal neurological deficits. - Labs CBC & Chem 7: 04/11/20 06:38 04/11/20 06:38 Labs: Abnormal Lab Results - Last 24 Hours (Table) 04/10/20 04/10/20 04/11/20 Range/Units 14:50 22:54 06:00 RBC (4.30-5.90) m/uL Hgb (13.0-17.5) gm/dL Hct (39.0-53.0) % MCV (80.0-100.0) fL Plt Count (150-450) k/uL Lymphocytes # (1.0-4.8) k/uL APTT 37.9 H 43.5 H (22.0-30.0) sec Sodium (137-145) mmol/L BUN (9-20) mg/dL Creatinine (0.66-1.25) mg/dL Urine pH 8.5 H (5.0-8.0) Urine Protein 2+ H (Negative) Urine Blood Small H (Negative) Ur Leukocyte Esterase Trace H (Negative) Urine RBC 6 H (0-5) /hpf Urine WBC 9 H (0-5) /hpf Urine Bacteria Rare H (None) /hpf 04/11/20 04/11/20 04/11/20 Range/Units 06:38 06:38 06:38 RBC 3.52 L (4.30-5.90) m/uL Hgb 11.4 L (13.0-17.5) gm/dL Hct 35.3 L (39.0-53.0) % MCV 100.2 H (80.0-100.0) fL Plt Count 139 L (150-450) k/uL Lymphocytes # 0.4 L (1.0-4.8) k/uL APTT 31.2 H (22.0-30.0) sec Sodium 136 L (137-145) mmol/L BUN 40 H (9-20) mg/dL Creatinine 7.74 H* (0.66-1.25) mg/dL Urine pH (5.0-8.0) Urine Protein (Negative) Urine Blood (Negative) Ur Leukocyte Esterase (Negative) Urine RBC (0-5) /hpf Urine WBC (0-5) /hpf Urine Bacteria (None) /hpf Microbiology - Last 24 Hours (Table) 04/09/20 09:35 Blood Culture - Preliminary Blood No Growth after 48 hours 04/10/20 03:58 Blood Culture - Preliminary Blood No Growth after 24 hours Assessment and Plan Plan: Impression and plan: #1 Gram-negative bacteremia and sepsis secondary to Enterobacter cloaca, most l ikely source is urine. #2 Lactic acidosis secondary to sepsis, but no evidence of septic shock. #3 New onset atrial fibrillation, paroxysmal, presently patient is in sinus rhythm bigeminal PVCs. #4 End-stage renal disease, on hemodialysis. #5 Polycystic kidney disease. #6 Tobacco dependence #7 Chronic abdominal wall hernia, no strangulation or incarceration. #8 non-Q-wave [place] , patient opting out of any invasive procedures at this time Plan Echocardiogram with Doppler study revealed an ejection fraction of 30-35%. We will start the patient on a low-dose beta ever, he does have renal disease but is undergoing dialysis, start a small dose of GEE inhibitor and Aldactone. Consider Eliquis for anticoagulation. DNP note has been reviewed, I agree with a documented findings and plan of care. Patient was seen and examined.
[2020-04-11 12:21] VITALS: BP 125/65
[2020-04-11 12:25] VITALS: TEMP 97.5
--- NOTE | 2020-04-11 12:38 | P.GSCN ---
<Geovanna Mccallum - Last Filed: 04/11/20 12:34> History of Present Illness Consult date: 04/11/20 Reason for Consult: Bacteremia/incarcerated hernia Requesting physician: Mirian oMrillo History of present illness: CHIEF COMPLAINT: Incarcerated hernia HISTORY OF PRESENT ILLNESS: 64-year-old male who originally presented to the emergency room in 04/08/2020 secondary to fever. Patient decided to leave AMA at that time. He did have blood cultures completed in the emergency room. He was notified the following day of positive blood cultures and he returned to the emergency room. Blood cultures from 04/08/2020 positive for Enterobacter cloacae. Repeat cultures are negative at 48 hours. He does have a history of ESRD. He states he used to be on peritoneal dialysis and has had two peritoneal dialysis catheters in the past but due to peritonitis and also an abdominal abscess. He has since been switched over to hemodialysis. Patient had a CT scan completed revealing incarcerated abdominal hernia. Hence general surgery was consulted for further evaluation. The patient was examined at the bedside. He reports a known history of his right-sided hernia and states it has been present there since he had his peritoneal dialysis catheter removed. He denies any abdominal pain. Denies nausea or vomiting. Reports having a normal bowel movement on Friday. He reports having a loose bowel movement yesterday after drinking oral contrast for his CT scan. PAST MEDICAL HISTORY: See list. PAST SURGICAL HISTORY: See list. SOCIAL HISTORY: No illicit drug use. REVIEW OF SYSTEMS: CONSTITUTIONAL: Reports fever prior to hospitalization HEENT: Denies blurred vision, vision changes, or eye pain. Denies hemoptysis CARDIOVASCULAR: Denies chest pain or pressure. RESPIRATORY: No shortness of breath. GASTROINTESTINAL: Refer to HPI for pertinent findings HEMATOLOGIC: Denies bleeding disorders. GENITOURINARY: Denies any blood in urine. SKIN: Denies pruitis. Denies rash. PHYSICAL EXAM: VITAL SIGNS: Reviewed. GENERAL: Well-developed in no acute distress. HEENT: No sclera icterus. Extraocular movements grossly intact. Moist buccal mucosa. Head is atraumatic, normocephalic. ABDOMEN: Soft. Nondistended. Nontender. Left sided scar from previous PD catheter. Right sided hernia-fully reducible and nontender. NEUROLOGIC: Alert and oriented. Cranial nerves II through XII grossly intact. LABORATORY DATA: WBC 6.1. Hemoglobin 11.4. Platelet count 139. IMAGING: CT abdomen and pelvis: Sigmoid diverticulosis without diverticulitis. Right anterior abdominal wall incarcerated ventral hernia containing omental fat. ASSESSMENT: 1. Ventral hernia 2. Bacteremia PLAN: -Patients hernia is fat containing and fully reducible. No need for urgent surgical intervention. -Continue antibiotics per infectious disease -Patient does express desire to have hernia fixed in the future. He may follow up with Dr. Buchanan outpatient post discharge Nurse practitioner note has been reviewed by physician. Signing provider agrees with the documented findings, assessment, and plan of care. Past Medical History Past Medical History: Dialysis, Renal Disease Additional Past Medical History / Comment(s): hemodialysis M/W/F, polycystic kidney disease, x2 hernia's in whit. lower abd., possible SZ activity (following up with Dr. Christianson, recent brain CT was negative) History of Any Multi-Drug Resistant Organisms: None Reported Past Surgical History: Hernia Repair Additional Past Surgical History / Comment(s): AV fistula L arm, CAPD - Right side tube failed and replaced into the Left side/Left side tube created a tube tunnel infection-Dr. Buchanan removed left tube in Nov 2019. Additional Past Anesthesia/Blood Transfusion Reaction / Comm: no previous transfusion Past Psychological History: Anxiety Smoking Status: Current every day smoker Past Alcohol Use History: Occasional Past Drug Use History: None Reported - Past Family History Mother Additional Family Medical History / Comment(s): of polycystic kidney Disea se Brother(s) Additional Family Medical History / Comment(s): x2 brothers had of polycystic kidney disease in their 60s Medications and Allergies Home Medications Medication Instructions Recorded Confirmed Type Calcium Acetate [PhosLo] 2,668 mg PO AC-TID 04/09/20 04/09/20 History Levothyroxine Sodium [Synthroid] 175 mcg PO DAILY 04/09/20 04/09/20 History Lidocaine-Prilocaine Cream [Emla 1 applic TOPICAL DIRECTED 04/09/20 04/09/20 History Cream 2.5%/2.5%] Midodrine [ProAmatine] 5 mg PO DAILY PRN 04/09/20 04/09/20 History Pravastatin Sodium [Pravachol] 10 mg PO HS 04/09/20 04/09/20 History Prorenal+D 1 tab PO DAILY 04/09/20 04/09/20 History Apixaban [Eliquis] 2.5 mg PO BID #60 tab 04/11/20 Rx Aspirin 81 mg PO DAILY chew 04/11/20 Rx Ciprofloxacin HCl [Cipro] 500 mg PO Q24H #12 tab 04/11/20 Rx Lisinopril [Zestril] 2.5 mg PO DAILY #30 tab 04/11/20 Rx Metoprolol Tartrate [Lopressor] 25 mg PO DAILY #30 tab 04/11/20 Rx Nicotine 21Mg/24Hr Patch [Habitrol] 1 patch TRANSDERM DAILY #30 patch 04/11/20 Rx Spironolactone [Aldactone] 25 mg PO DAILY #30 tab 04/11/20 Rx Allergies Allergy/AdvReac Type Severity Reaction Status Date / Time No Known Allergies Allergy Verified 04/09/20 09:58 Surgical - Exam Vital Signs Temp Pulse Resp BP Pulse Ox 97.9 F 92 20 75/49 97 04/09/20 08:39 04/09/20 08:39 04/09/20 08:39 04/09/20 08:39 04/09/20 08:39 Results - Labs 04/11/20 06:38 04/11/20 06:38 Abnormal Lab Results - Last 24 Hours (Table) 04/10/20 04/10/20 04/11/20 Range/Units 14:50 22:54 06:00 RBC (4.30-5.90) m/uL Hgb (13.0-17.5) gm/dL Hct (39.0-53.0) % MCV (80.0-100.0) fL Plt Count (150-450) k/uL Lymphocytes # (1.0-4.8) k/uL APTT 37.9 H 43.5 H (22.0-30.0) sec Sodium (137-145) mmol/L BUN (9-20) mg/dL Creatinine (0.66-1.25) mg/dL Urine pH 8.5 H (5.0-8.0) Urine Protein 2+ H (Negative) Urine Blood Small H (Negative) Ur Leukocyte Esterase Trace H (Negative) Urine RBC 6 H (0-5) /hpf Urine WBC 9 H (0-5) /hpf Urine Bacteria Rare H (None) /hpf 04/11/20 04/11/20 04/11/20 Range/Units 06:38 06:38 06:38 RBC 3.52 L (4.30-5.90) m/uL Hgb 11.4 L (13.0-17.5) gm/dL Hct 35.3 L (39.0-53.0) % MCV 100.2 H (80.0-100.0) fL Plt Count 139 L (150-450) k/uL Lymphocytes # 0.4 L (1.0-4.8) k/uL APTT 31.2 H (22.0-30.0) sec Sodium 136 L (137-145) mmol/L BUN 40 H (9-20) mg/dL Creatinine 7.74 H* (0.66-1.25) mg/dL Urine pH (5.0-8.0) Urine Protein (Negative) Urine Blood (Negative) Ur Leukocyte Esterase (Negative) Urine RBC (0-5) /hpf Urine WBC (0-5) /hpf Urine Bacteria (None) /hpf Microbiology - Last 24 Hours (Table) 04/09/20 09:35 Blood Culture - Preliminary Blood No Growth after 48 hours 04/10/20 03:58 Blood Culture - Preliminary Blood No Growth after 24 hours Diabetes panel 04/11/20 Range/Units 06:38 Sodium 136 L (137-145) mmol/L Potassium 4.1 (3.5-5.1) mmol/L Chloride 101 (98-107) mmol/L Carbon Dioxide 24 (22-30) mmol/L BUN 40 H (9-20) mg/dL Creatinine 7.74 H* (0.66-1.25) mg/dL Glucose 88 (74-99) mg/dL Calcium 8.4 (8.4-10.2) mg/dL Calcium panel 04/11/20 Range/Units 06:38 Calcium 8.4 (8.4-10.2) mg/dL Phosphorus 4.0 (2.5-4.5) mg/dL Pituitary panel 04/11/20 Range/Units 06:38 Sodium 136 L (137-145) mmol/L Potassium 4.1 (3.5-5.1) mmol/L Chloride 101 (98-107) mmol/L Carbon Dioxide 24 (22-30) mmol/L BUN 40 H (9-20) mg/dL Creatinine 7.74 H* (0.66-1.25) mg/dL Glucose 88 (74-99) mg/dL Calcium 8.4 (8.4-10.2) mg/dL Adrenal panel 04/11/20 Range/Units 06:38 Sodium 136 L (137-145) mmol/L Potassium 4.1 (3.5-5.1) mmol/L Chloride 101 (98-107) mmol/L Carbon Dioxide 24 (22-30) mmol/L BUN 40 H (9-20) mg/dL Creatinine 7.74 H* (0.66-1.25) mg/dL Glucose 88 (74-99) mg/dL Calcium 8.4 (8.4-10.2) mg/dL <Yahir Buchanan - Last Filed: 04/11/20 14:48> History of Present Illness History of present illness: As above. Patient will known to my service. Patient with a reducible hernia at the previous PD cath removal site right mid abdomen. This does not appear to be symptomatic in nature at this time. CAT scan reviewed. Patient states he would like to possibly have this repaired in the future. He would like to go home at this time. Patient was complaining of dysuria. Etiology for bacteremia thought to be possibly on the basis of UTI. Will follow. Surgical - Exam Vital Signs Temp Pulse Resp BP Pulse Ox 97.9 F 92 20 75/49 97 04/09/20 08:39 04/09/20 08:39 04/09/20 08:39 04/09/20 08:39 04/09/20 08:39 Results - Labs 04/11/20 06:38 04/11/20 06:38 Abnormal Lab Results - Last 24 Hours (Table) 04/10/20 04/10/20 04/11/20 Range/Units 14:50 22:54 06:00 RBC (4.30-5.90) m/uL Hgb (13.0-17.5) gm/dL Hct (39.0-53.0) % MCV (80.0-100.0) fL Plt Count (150-450) k/uL Lymphocytes # (1.0-4.8) k/uL APTT 37.9 H 43.5 H (22.0-30.0) sec Sodium (137-145) mmol/L BUN (9-20) mg/dL Creatinine (0.66-1.25) mg/dL Urine pH 8.5 H (5.0-8.0) Urine Protein 2+ H (Negative) Urine Blood Small H (Negative) Ur Leukocyte Esterase Trace H (Negative) Urine RBC 6 H (0-5) /hpf Urine WBC 9 H (0-5) /hpf Urine Bacteria Rare H (None) /hpf 04/11/20 04/11/20 04/11/20 Range/Units 06:38 06:38 06:38 RBC 3.52 L (4.30-5.90) m/uL Hgb 11.4 L (13.0-17.5) gm/dL Hct 35.3 L (39.0-53.0) % MCV 100.2 H (80.0-100.0) fL Plt Count 139 L (150-450) k/uL Lymphocytes # 0.4 L (1.0-4.8) k/uL APTT 31.2 H (22.0-30.0) sec Sodium 136 L (137-145) mmol/L BUN 40 H (9-20) mg/dL Creatinine 7.74 H* (0.66-1.25) mg/dL Urine pH (5.0-8.0) Urine Protein (Negative) Urine Blood (Negative) Ur Leukocyte Esterase (Negative) Urine RBC (0-5) /hpf Urine WBC (0-5) /hpf Urine Bacteria (None) /hpf Microbiology - Last 24 Hours (Table) 04/09/20 09:35 Blood Culture - Preliminary Blood No Growth after 48 hours 04/10/20 03:58 Blood Culture - Preliminary Blood No Growth after 24 hours Diabetes panel 04/11/20 Range/Units 06:38 Sodium 136 L (137-145) mmol/L Potassium 4.1 (3.5-5.1) mmol/L Chloride 101 (98-107) mmol/L Carbon Dioxide 24 (22-30) mmol/L BUN 40 H (9-20) mg/dL Creatinine 7.74 H* (0.66-1.25) mg/dL Glucose 88 (74-99) mg/dL Calcium 8.4 (8.4-10.2) mg/dL Calcium panel 04/11/20 Range/Units 06:38 Calcium 8.4 (8.4-10.2) mg/dL Phosphorus 4.0 (2.5-4.5) mg/dL Pituitary panel 04/11/20 Range/Units 06:38 Sodium 136 L (137-145) mmol/L Potassium 4.1 (3.5-5.1) mmol/L Chloride 101 (98-107) mmol/L Carbon Dioxide 24 (22-30) mmol/L BUN 40 H (9-20) mg/dL Creatinine 7.74 H* (0.66-1.25) mg/dL Glucose 88 (74-99) mg/dL Calcium 8.4 (8.4-10.2) mg/dL Adrenal panel 04/11/20 Range/Units 06:38 Sodium 136 L (137-145) mmol/L Potassium 4.1 (3.5-5.1) mmol/L Chloride 101 (98-107) mmol/L Carbon Dioxide 24 (22-30) mmol/L BUN 40 H (9-20) mg/dL Creatinine 7.74 H* (0.66-1.25) mg/dL Glucose 88 (74-99) mg/dL Calcium 8.4 (8.4-10.2) mg/dL
--- NOTE | 2020-04-11 13:28 | PN ---
PROGRESS NOTE Patient is seen for followup for end-stage renal disease. He was admitted to the hospital with fever. Patient was found to have bacteremia with Enterobacter cloacae. The patient is being seen by ID. His repeat blood cultures have been negative. He has an AV graft, which is a bovine vein graft in his left arm. This has not been tender with no erythema and no drainage. The patient has had a PD catheter before with the previous PD catheter infections. However, there is no evidence of tenderness or tunnel infection currently. No abdominal tenderness noted. On examination today, blood pressure is 138/76, heart rate 87 per minute. He is afebrile. Examination of the heart S1, S2. Examination of the lungs, bilateral breath sounds are heard. Abdomen is soft, nontender. Examination of lower extremities shows no evidence of edema. [employer]IST exam grossly intact. Labs show hemoglobin 11.4, sodium 136, potassium 4.1, BUN 40, creatinine 7.74. ASSESSMENT: 1. End-stage renal disease, on hemodialysis on a Friday, Friday, Friday schedule. 2. Fever and Enterobacter cloacae bacteremia maintained on antibiotics. A CT scan of the abdomen shows right anterior abdominal wall incarcerated ventral hernia. No significant diverticulitis or abscess noted on the CT scan. 3. History of polycystic kidney disease as an etiology for end-stage renal disease. 4. Chronic kidney disease mineral bone disorder. PLAN: Hemodialysis in a.m. Antibiotics as per ID. Recommend surgical evaluation of the ventral hernia. MMODL / IJN: [id number] /
--- NOTE | 2020-04-11 13:46 | P.PN ---
Subjective Progress Note Date: 04/11/20 Principal diagnosis: Gram-negative sepsis and bacteremia 64-year-old male patient with a incisional disease is currently on hemodialysis the patient undergoes dialysis 3 times a week MWF through a AV fistula. The patient presented to the ED with fever and lethargic and generalized weakness and constipation symptoms. In fact came into the emergency yesterday he signed himself AMA. He returned for the same symptoms and he was found to have a possible culture with gram-negative bacillus. No nausea. No vomiting. No abdominal pain. His been having regular bowel movements. No chest pain. No cough or sputum production. He is urine output is minimal at this point in [facility]. In the ED, the patient was also found to have a new onset atrial fibrillation with rapid ventricular response. He was borderline hypotensive. He was not requiring any pressors. EKG showed a atrial fibrillation rhythm and based on some underlying hypotension, the patient underwent a cardioversion emergency department and subsequently he woke converted into normal sinus rhythm. The current EKG showing sinus with some ST segment changes for which cardiology was asked to see the patient and no intervention was recommended. The patient is currently in the intensive care unit. His serum creatinine is at 8.4 with a BUN of 130. Glucose is 117. Lactic acid level was elevated at 3.2. Troponins are 0.24 and a proBNP level is 57,002 100. Chest x-ray showed cardiomegaly. The patient was given a liter of normal saline, started on IV heparin, started on amiodarone drip and moved to the intensive care unit. He is currently on 2 L of oxygen by nasal cannula with a pulse ox of 100%. He is current antibiotic coverage is IV Zosyn. Reevaluated today on 04/10/20, patient remains in the ICU, remains on Zosyn for what seems to be Enterobacter cloaca bacteremia. Exact source of the infection is not clear, could be skin related or could be urine related. Nonetheless, the patient is responding well to treatment, feeling better today, denies any cough wheezing or shortness of breath. Denies any pulmonary symptoms. Denies any nausea vomiting or abdominal pain. Denies any dysuria frequency or urgency. Patient does make urine, however not much. He is on hemodialysis, and he will b e hemodialyzed again today. CBC is relatively unremarkable, electrolytes are unremarkable except for low sodium of 129 BUN is 69 and creatinine is 10.59. Repeat blood cultures yesterday have been negative. The blood culture from 04/08 was positive for Enterobacter cloaca. On 04/11/2020 patient is seen in follow-up on selective care unit, remains on Zosyn for evidence of Enterobacter cloacae in the blood cultures on 04/08/2020, follow blood cultures have shown no growth so far. Patient is awake and alert, he is ambulating in the hallway, rule out currently on room air, pulse ox is 96%, hemodynamically stable, afebrile. So far the source of his bacteremia has not been determined. He has no specific complaints, no cough or congestion, no shortness of breath, lung sounds are clear, surgical evaluation is underway for right anterior abdominal wall incarcerated ventral hernia. Patient currently remains in atrial fibrillation with a controlled ventricular rate. Cardiology is following, remains on heparin infusion for anticoagulation. Cardiogram revealed a moderately severe impairment of LV function and EF of 30-35%, mild aortic stenosis, mild mitral and tricuspid regurgitation, with no evidence of pulmonary hypertension and the right-sided pressures of less than 35 mmHg. Objective - Vital Signs Vital signs: Vital Signs Temp 97.5 F L 04/11/20 12:00 Pulse 87 04/11/20 08:00 Resp 18 04/11/20 12:00 BP 125/65 04/11/20 12:00 Pulse Ox 96 04/11/20 12:00 Intake & Output 04/10/20 04/11/20 04/11/20 18:59 06:59 18:59 Intake Total 570.566 600 429.434 Output Total 1500 5 Balance -929.434 595 429.434 Weight 82.5 kg Intake: IV 260 600 Piperacillin-Tazobactam 3 100 100 .375 gm In Sodium Chloride 0.9% 100 ml @ 25 mls/hr IVPB Q12HR [facility] Rx #:[id number] Sodium Chloride 0.9% 1, 160 500 000 ml @ 50 mls/hr IV . Q20H [facility] Rx#:[id number] Intake, IV Titration 310.566 189.434 Amount Heparin Sod,Pork in 0.45% 310.566 189.434 NaCl 25,000 unit In 0.45 % NaCl 1 250ml.bag @ 12 UNITS/KG/HR 9.525 mls/hr IV .Q24H [facility] Rx#: [id number] Oral 240 Output: Urine 0 5 Hemodialysis 1500 Other: Voiding Method Urinal Urinal Urinal # Voids 1 - Exam GENERAL EXAM: Alert, very pleasant, 64-year-old white male, on room air with a pulse ox of 97%, comfortable in no apparent distress. HEAD: Normocephalic/atraumatic. EYES: Normal reaction of pupils, equal size. Conjunctiva pink, sclera white. NOSE: Clear with pink turbinates. THROAT: No erythema or exudates. NECK: No masses, no JVD, no thyroid enlargement, no adenopathy. CHEST: No chest wall deformity. Symmetrical expansion. LUNGS: Equal air entry with no crackles, wheeze, rhonchi or dullness. CVS: Irregular rate and rhythm, normal S1 and S2, no gallops, no murmurs, no rubs ABDOMEN: Soft, nontender. No hepatosplenomegaly, normal bowel sounds, no guarding or rigidity. EXTREMITIES: No clubbing, no edema, no cyanosis, 2+ pulses and upper and lower extremities. MUSCULOSKELETAL: Muscle strength and tone normal. SPINE: No scoliosis or deformity SKIN: No rashes CENTRAL NERVOUS SYSTEM: Alert and oriented -3. No focal deficits, tone is normal in all 4 extremities. PSYCHIATRIC: Alert and oriented -3. Appropriate affect. Intact judgment and insight. - Labs CBC & Chem 7: 04/11/20 06:38 04/11/20 06:38 Labs: Abnormal Lab Results - Last 24 Hours (Table) 04/10/20 04/10/20 04/11/20 Range/Units 14:50 22:54 06:00 RBC (4.30-5.90) m/uL Hgb (13.0-17.5) gm/dL Hct (39.0-53.0) % MCV (80.0-100.0) fL Plt Count (150-450) k/uL Lymphocytes # (1.0-4.8) k/uL APTT 37.9 H 43.5 H (22.0-30.0) sec Sodium (137-145) mmol/L BUN (9-20) mg/dL Creatinine (0.66-1.25) mg/dL Urine pH 8.5 H (5.0-8.0) Urine Protein 2+ H (Negative) Urine Blood Small H (Negative) Ur Leukocyte Esterase Trace H (Negative) Urine RBC 6 H (0-5) /hpf Urine WBC 9 H (0-5) /hpf Urine Bacteria Rare H (None) /hpf 04/11/20 04/11/20 04/11/20 Range/Units 06:38 06:38 06:38 RBC 3.52 L (4.30-5.90) m/uL Hgb 11.4 L (13.0-17.5) gm/dL Hct 35.3 L (39.0-53.0) % MCV 100.2 H (80.0-100.0) fL Plt Count 139 L (150-450) k/uL Lymphocytes # 0.4 L (1.0-4.8) k/uL APTT 31.2 H (22.0-30.0) sec Sodium 136 L (137-145) mmol/L BUN 40 H (9-20) mg/dL Creatinine 7.74 H* (0.66-1.25) mg/dL Urine pH (5.0-8.0) Urine Protein (Negative) Urine Blood (Negative) Ur Leukocyte Esterase (Negative) Urine RBC (0-5) /hpf Urine WBC (0-5) /hpf Urine Bacteria (None) /hpf Microbiology - Last 24 Hours (Table) 04/09/20 09:35 Blood Culture - Preliminary Blood No Growth after 48 hours 04/10/20 03:58 Blood Culture - Preliminary Blood No Growth after 24 hours Assessment and Plan Plan: Assessment: Gram-negative bacteremia and sepsis secondary to Enterobacter cloaca, most likely source is urine. Lactic acidosis secondary to sepsis, but no evidence of septic shock, recovered New onset atrial fibrillation, presently patient is in sinus rhythm. End-stage renal disease, on hemodialysis. Polycystic kidney disease. Tobacco dependence syndrome. Chronic abdominal wall hernia, no strangulation or incarceration. Plan: Continue current medical treatment, likely stable, no complaints of shortness of breath, chest pain, cough or congestion, so far the source of bacteremia has not been identified, however we suspect that it is related to urinary source. Clinically patient remains stable, consider discharging patient home on oral anti biotics, possibly ciprofloxacin and Levaquin, or Bactrim. From pulmonary perspective patient can be considered for discharge home today. I performed a history & physical examination of the patient and discussed their management with my nurse practitioner, Senait Harper. I reviewed the nurse practitioner's note and agree with the documented findings and plan of care. Lung sounds are positive for clear breath sounds The findings and the impression was discussed with the patient. I attest to the documentation by the nurse practitioner. Time with Patient: Less than 30
--- NOTE | 2020-04-11 14:06 | P.DS ---
Providers Date of admission: 04/09/20 10:32 Expected date of discharge: 04/11/20 Attending physician: Robert Christianson Consults: 04/09/20 09:30 Consult Physician Stat Consulting Provider: Norbert Gallegos Consult Reason/Comments: abnornal ekg, chest pain Do you want consulting provider notified?: Already Contacted 04/09/20 10:28 Consult Physician Routine Consulting Provider: Deepthi Denney Consult Reason/Comments: esrd Do you want consulting provider notified?: Yes 04/09/20 10:29 Consult Physician Routine Consulting Provider: Trinidad Garvin Consult Reason/Comments: bacteremia Do you want consulting provider notified?: Yes 04/09/20 10:32 Consult Physician Stat Consulting Provider: Lakesha Duarte Consult Reason/Comments: icu patient Do you want consulting provider notified?: Already Contacted 04/11/20 11:06 Consult Physician Routine Consulting Provider: Yahir Buchanan Consult Reason/Comments: bactermeia/Incarcerated hernia Do you want consulting provider notified?: Yes Primary care physician: Robert Christianson Hospital Course: Final Diagnoses: sepsis secondary to Enterobacter cloacae bacteremia, etiology unclear, most likely source is urine, possibly abdomen. New onset atrial fibrillation, presently patient is in sinus rhythm. Right anterior abdominal wall incarcerated ventral hernia containing omental fat, appears new. Follow up outpatient with Dr. Buchanan Anxiety End-stage renal disease, on hemodialysis. Advanced Polycystic kidney disease. Diverticulosis Nicotine dependence Hospital course this a 64-year-old gentleman with chronic kidney disease on hemodialysis admitted with multiple medical issues including sepsis, bacteremia, cultures positive for Enterobacter clocae, etiology unclear. CT of abdomen and pelvis reported advanced polycystic disease of the liver and kidneys with some progression, sigmoid diverticulosis without diverticulitis, right anterior abdominal wall incarcerated ventral hernia containing omental fat, appears new. Evaluated by surgery, Dr. Buchanan, with no surgical intervention recommended at this time, outpatient follow-up. Anticoagulation as per cardiology. Antibiotics as per ID. Patient will be discharged home in a stable condition with guarded prognosis today. Microbiology 04/09/20 09:35 Blood Blood Culture - Preliminary No Growth after 48 hours 04/10/20 03:58 Blood Blood Culture - Preliminary No Growth after 24 hours The impression and plan of care has been dictated as directed. : I performed a history and examination of this patient, discussed the same with the dictator. I agree with the dictator's note ,documented as a scribe. Any additional findings or plans will be noted. Patient Condition at Discharge: Stable Plan - Discharge Summary Discharge Rx Participant: Yes New Discharge Prescriptions: New Spironolactone [Aldactone] 25 mg PO DAILY #30 tab Aspirin 81 mg PO DAILY chew Nicotine 21Mg/24Hr Patch [Habitrol] 1 patch TRANSDERM DAILY #30 patch Metoprolol Tartrate [Lopressor] 25 mg PO DAILY #30 tab Lisinopril [Zestril] 2.5 mg PO DAILY #30 tab Continue Pravastatin Sodium [Pravachol] 10 mg PO HS Midodrine [ProAmatine] 5 mg PO DAILY PRN PRN Reason: DIALYSIS Lidocaine-Prilocaine Cream [Emla Cream 2.5%/2.5%] 1 applic TOPICAL DIRECTED Levothyroxine Sodium [Synthroid] 175 mcg PO DAILY Calcium Acetate [PhosLo] 2,668 mg PO AC-TID Prorenal+D 1 tab PO DAILY Discontinued Cephalexin [Keflex] 500 mg PO Q6HR #40 cap Discharge Medication List Calcium Acetate [PhosLo] 2,668 mg PO AC-TID 04/09/20 [History] Levothyroxine Sodium [Synthroid] 175 mcg PO DAILY 04/09/20 [History] Lidocaine-Prilocaine Cream [Emla Cream 2.5%/2.5%] 1 applic TOPICAL DIRECTED 04/09/20 [History] Midodrine [ProAmatine] 5 mg PO DAILY PRN 04/09/20 [History] Pravastatin Sodium [Pravachol] 10 mg PO HS 04/09/20 [History] Prorenal+D 1 tab PO DAILY 04/09/20 [History] Aspirin 81 mg PO DAILY chew 04/11/20 [Rx] Lisinopril [Zestril] 2.5 mg PO DAILY #30 tab 04/11/20 [Rx] Metoprolol Tartrate [Lopressor] 25 mg PO DAILY #30 tab 04/11/20 [Rx] Nicotine 21Mg/24Hr Patch [Habitrol] 1 patch TRANSDERM DAILY #30 patch 04/11/20 [Rx] Spironolactone [Aldactone] 25 mg PO DAILY #30 tab 04/11/20 [Rx] Follow up Appointment(s)/Referral(s): Yahir Buchanan MD [Medical Doctor] - 3 Weeks Robert Christianson DO [Primary Care Provider] - 3 Days Deepthi Denney MD [STAFF PHYSICIAN] - 1 Week Ambulatory/Diagnostic Orders: Complete Blood Count w/diff [LAB.AMB] Time Frame: 3 Days, Location: None Selected Activity/Diet/Wound Care/Special Instructions: Hemodialysis as per nephrology .Anticoagulation as per cardiology, antibiotics as per ID. Confirm cardiology follow-up appointment prior to discharge.
[2020-04-11] MEDS ORDERED: APIXABAN 2.5 MG TABLET PO SCH ×2 (14:30→21:00)
--- NOTE | 2020-04-11 15:28 | PN ---
PROGRESS NOTE DATE OF SERVICE: 04/11/2020 REASON FOR FOLLOW UP: Enterobacter bacteremia, possible abdominal source. INTERVAL HISTORY: Patient is currently afebrile. The patient is breathing comfortably. Denies having any chest pain. No shortness of breath or cough. No nausea, vomiting, abdominal pain. No diarrhea. PHYSICAL EXAMINATION: Blood pressure is 125/65 with a pulse of 87. Temperature 97.5. He is 96% room air. General description: The patient is a middle-aged male lying in bed in no distress. Respiratory system: Unlabored breathing. Clear to auscultation anteriorly. Heart S1, S2. Regular rate and rhythm. Abdomen soft, no tenderness. LABS: Followup blood culture has been negative. DIAGNOSTIC IMPRESSION AND PLAN: Patient with Enterobacter bacteremia, possible abdominal source. CT did show incarcerated hernia. Surgery has seen the patient, recommending no further intervention. Antibiotic as the patient insisting on going home and followup blood culture has been negative. We will switch over antibiotics to oral Cipro for another 10 days and close outpatient followup. MMODL / IJN: [id number] /
[2020-04-12] MEDS ORDERED: SPIRONOLACTONE 25 MG TAB PO SCH (09:00)
== END 2020-04-11 16:40 | disposition home or self-care (01) | DRG 871 ==
LOC: EC 08:37 → 2SICU 10:32 → 3SCARD 04-10 18:37
PROVIDERS: ADMIT Family Medicine; ATTEND Family Medicine
PROC: 5A2204Z Restoration of Cardiac Rhythm, Single (ICD-10-PCS; principal; 2020-04-09)
PROC: 5A1D70Z Performance of Urinary Filtration, Intermittent, Less than 6 Hours Per Day (ICD-10-PCS; 2020-04-11)
DX: A41.59 Other Gram-negative sepsis (principal); N18.6 End stage renal disease; I21.4 Non-ST elevation (NSTEMI) myocardial infarction; Q61.3 Polycystic kidney, unspecified; E87.2 Acidosis; K43.6 Other and unspecified ventral hernia with obstruction, without gangrene; I25.10 Atherosclerotic heart disease of native coronary artery without angina pectoris; F17.210 Nicotine dependence, cigarettes, uncomplicated; E78.5 Hyperlipidemia, unspecified; F41.9 Anxiety disorder, unspecified; I48.0 Paroxysmal atrial fibrillation; E03.9 Hypothyroidism, unspecified; N25.0 Renal osteodystrophy; I25.5 Ischemic cardiomyopathy; I51.7 Cardiomegaly; K57.30 Diverticulosis of large intestine without perforation or abscess without bleeding; Z20.828 Contact with and (suspected) exposure to other viral communicable diseases; K59.00 Constipation, unspecified; Z79.899 Other long term (current) drug therapy; Z79.890 Hormone replacement therapy; Z79.82 Long term (current) use of aspirin; Z79.01 Long term (current) use of anticoagulants; Z99.2 Dependence on renal dialysis; Z98.890 Other specified postprocedural states; Z82.71 Family history of polycystic kidney
CPT/HCPCS: 36415; 70450; 71045; 71046; 74176; 80048; 80053; 81001; 82803; 83605; 83690; 83735; 83880; 84100; 84484; 85025; 85610; 85730; 86140; 86850; 86900; 86901; 87040; 87077; 87186; 90935; 93005; 93306; 96365; 96367; 96374; 96376; 99284; 99285

== ENCOUNTER → 2020-12-20 | Outpatient (CLI) | payer MEDICARE ==
[2020-12-20 21:35] LABS: HCT 39.4 % (39.6-50.0); MCH 33.2 pg (27.0-32.0); MCV 100.5 fL (80.0-97.0); Mean Platelet Volume 11.9 fL (9.5-12.2); Platelet Count 180 X 10*3/uL (140-440); RBC 3.92 X 10*6/uL (4.40-5.60); RDW 15.1 % (11.5-14.5); WBC 8.28 X 10*3/uL (4.50-10.00)
[2020-12-21 03:14] LABS: African American GFR (CKD) 7.6 (60.0-200.0); Anion Gap 14.9 mmol/L (4.00-12.00); BUN/Creat Ratio 8.21 Ratio (12.00-20.00); Carbon Dioxide 29.1 mmol/L (21.6-31.8); Non-African American GFR(CKD) 6.6 (60.0-200.0); Potassium 4.1 mmol/L (3.5-5.5)
== END | disposition home or self-care (01) ==
LOC: LABWHC1 14:07
PROVIDERS: ATTEND Internal Medicine Cardiovascular Disease
DX: I48.19 Other persistent atrial fibrillation (principal)
CPT/HCPCS: 36415; 80048; 84443; 85027

== ENCOUNTER 2021-02-06 06:02 | Day surgery (SDC) | payer MEDICARE ==
[2021-02-02 11:28] VITALS: BMI 24.8
[2021-02-06] MEDS ORDERED: SODIUM CHLORIDE 0.9% 1,000 ML IV SCH (06:07)
[2021-02-06 07:17] LABS: Calcium 8.5 mg/dL (8.4-10.2); Potassium 3.3 mmol/L (3.5-5.1)
[2021-02-06 07:28] VITALS: TEMP 98
[2021-02-06] MEDS: BENZOCAINE SPRAY 1 CAN MUCOUS MEM ONE ×2 (07:30→07:37)
[2021-02-06] MEDS ORDERED: PHENYLEPHRINE-0.9% NACL SYG 1,000 MCG/10 ML SYRINGE ONE (07:31)
[2021-02-06] MEDS ORDERED: PROPOFOL 10 MG/ML 20 ML VIAL IV ONE (07:31)
[2021-02-06 08:02] VITALS: RESP 16
--- NOTE | 2021-02-06 08:27 | ECHOT ---
TRANSESOPHAGEAL ECHOCARDIOGRAM INDICATION: Permanent atrial fibrillation. PROCEDURE: Transesophageal echocardiogram. INDICATION: To rule out intracardiac thrombus prior to cardioversion. PROCEDURE NOTE: After obtaining informed consent, transesophageal echocardiogram was performed in left lateral position using an Omniplane probe. Local and IV sedation was obtained by the painter bottom the patient tolerated the procedure well without any obvious immediate complications. FINDINGS: 1. There is no intracardiac thrombus within the left atrial appendage, left atrium, right atrium, right ventricle or left ventricle. 2. Left atrium appears enlarged. 3. Right ventricle is enlarged. 4. Right atrium appears mildly enlarged. 5. Left ventricle has normal size and shows concentric left ventricular hypertrophy with diffuse global hypokinesis and mild LV dysfunction with ejection fraction of 45%. 6. There is mild to moderate atherosclerotic changes noted within the aorta. 7. Aortic valve appears calcified with restriction with . 8. Mitral valve shows mild mitral regurgitation. 9. Tricuspid valve shows mild tricuspid regurgitation. 10.Interatrial Septum: There is no evidence of [id number] shunt by color-flow Doppler or [id number] shunt by agitated saline contrast study. This patient underwent color, 2D Doppler evaluation with a contrast. CONCLUSION: 1. No intracardiac thrombus. 2. Mild left ventricular systolic dysfunction. PLAN: Patient will undergo cardioversion. MMODL / IJN: [id number] /
[2021-02-06] MEDS ORDERED: METOPROLOL TARTRATE 50 MG TAB PO SCH (09:00)
--- NOTE | 2021-02-06 09:24 | CE ---
CARDIAC ELECTROPHYSIOLOGY REPORT CARDIOVERSION NOTE: INDICATION: Permanent atrial fibrillation. PROCEDURE NOTE: After obtaining informed consent, the patient underwent electrical cardioversion with a single 200 joules synchronized shock. He converted to sinus rhythm and stayed in sinus rhythm. His blood pressure was at the lower end prior to procedure and dropped his pressure 80 systolic with . We ensured that there was no intracardiac thrombus with a MAC. The patient had been taking the Eliquis. PLAN: The patient will continue the anticoagulant and I will review his medications and adjust them as needed prior to discharge. MMODL / IJN: [id number] /
[2021-02-06 09:45] VITALS: BP 110/70; PULSE 62
== END 2021-02-06 09:23 | disposition home or self-care (01) ==
LOC: CATHCVL 06:02
PROVIDERS: ATTEND Internal Medicine Cardiovascular Disease
DX: I48.21 Permanent atrial fibrillation (principal); I10 Essential (primary) hypertension; F17.210 Nicotine dependence, cigarettes, uncomplicated; Z79.82 Long term (current) use of aspirin; Z79.899 Other long term (current) drug therapy; Z20.822 Contact with and (suspected) exposure to COVID-19
CPT/HCPCS: 93312; 93320; 93325; 92960; 80048; 87635; J2370; J2704

== ENCOUNTER → 2021-09-03 | Outpatient (CLI) | payer MEDICARE | END | disposition home or self-care (01) | LOC: LABWHC1 09:59 | PROVIDERS: ATTEND Internal Medicine Cardiovascular Disease | DX: I48.11 Longstanding persistent atrial fibrillation (principal) | CPT/HCPCS: 36415; 84443; 84450; 84460 ==

== ENCOUNTER → 2023-02-18 | Outpatient (CLI) | payer MEDICARE ==
[2023-02-18 20:52] LABS: African American GFR (CKD) 11.7 (60.0-200.0); Albumin 3.8 g/dL (3.8-4.9); Albumin/Globulin Ratio 1.58 (1.60-3.17); Anion Gap 15.8 mmol/L (10.00-18.00); BUN/Creat Ratio 5.7 Ratio (12.00-20.00); Blood Urea Nitrogen 30.8 mg/dL (9.0-27.0); Calcium 9.3 mg/dL (8.7-10.3); Carbon Dioxide 28.2 mmol/L (20.0-27.5); Globulin 2.4 g/dL (1.6-3.3); Magnesium 1.9 mg/dL (1.5-2.4); Non-African American GFR(CKD) 10.1 (60.0-200.0); Potassium 3.4 mmol/L (3.5-5.5); T4, Free (Free Thyroxine) 1.75 ng/dL (0.800-1.800); Total Bilirubin 0.3 mg/dL (0.30-1.20); Total Protein 6.2 g/dL (6.2-8.2)
== END | disposition home or self-care (01) ==
LOC: LABWHC1 13:32
PROVIDERS: ATTEND Family Medicine
DX: I48.11 Longstanding persistent atrial fibrillation (principal); E03.9 Hypothyroidism, unspecified; R25.2 Cramp and spasm
CPT/HCPCS: 36415; 80053; 83735; 84439; 84443

== ENCOUNTER → 2023-09-15 | Outpatient (CLI) | payer MEDICARE ==
[2023-09-15 11:14] LABS: ALT 13 U/L (10-49); AST 19 U/L (14-35); Chol/HDL Ratio 2.06 Ratio; LDL Cholesterol,Calculated 66.6 mg/dL (0.0-131.0); Prostate Specific Antigen 1.37 ng/mL (0.000-4.500); T4, Free (Free Thyroxine) 1.39 ng/dL (0.80-1.80)
== END | disposition home or self-care (01) ==
LOC: LABWHC1 07:01
PROVIDERS: ATTEND Family Medicine
DX: E78.2 Mixed hyperlipidemia (principal); E03.9 Hypothyroidism, unspecified; N40.0 Benign prostatic hyperplasia without lower urinary tract symptoms
CPT/HCPCS: 36415; 80061; 84153; 84439; 84443; 84450; 84460

== ENCOUNTER → 2024-03-10 | Outpatient (CLI) | payer MEDICARE | END | disposition home or self-care (01) | LOC: LABWHC1 09:59 | PROVIDERS: ATTEND Internal Medicine Cardiovascular Disease | DX: I48.11 Longstanding persistent atrial fibrillation (principal) | CPT/HCPCS: 36415; 84443; 84450; 84460 ==

== ENCOUNTER → 2024-09-04 | Outpatient (CLI) | payer MEDICARE ==
[2024-09-04 23:21] LABS: LDL Cholesterol,Calculated 72.4 mg/dL (0.0-131.0); T4, Free (Free Thyroxine) 1.19 ng/dL (0.80-1.80); VLDL Calculation 16.34 mg/dL (5.00-40.00)
== END | disposition home or self-care (01) ==
LOC: LABWHC1 10:27
PROVIDERS: ATTEND Internal Medicine Cardiovascular Disease
DX: E03.9 Hypothyroidism, unspecified (principal)
CPT/HCPCS: 36415; 80061; 84439; 84443